=== PATIENT | male | born 2000 | race Caucasian/White ===

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

== ENCOUNTER 2022-04-24 17:19 | Emergency (ER) | payer OTHER ==
--- OUTSIDE RECORDS SUMMARY | 2022-04-24 17:23 | XMS REPORT | Continuity of Care Document ---
:2000 Author Organization [facility] t Address [address] [place] [address] Care Team Providers Name Role Phone JEFFREY Mcmillan [facility] Primary Care P hysician Unavailable KIP BATES Attending Clinician Unavailable Only, Suman [facility] Test Attending Clinician Unavailable Unknown, Attending Attending Clinician Unavailable Doctor Unassigned, [place] Attending Clinician Unavailable Megan Alexander Attending Clinician Sumaya Royal MD Attending Clinician SUMAYA ROYAL Attending Clinician Unavailable SUMAYA ROYAL Admitting Clinician Unavailable Payers Payer Name Policy Type Policy Number Effective Date Expiration Date S shar [facility]LY [facility] [id number] 2018 00:00:00 Problems Condition Condition Condition Status Onset Resolution Last Treating Co mments Source Name Details Category Date Date Treatment Clinician Date Phimosis Phimosis Disease Active Guillermo s 02-19 Health 00:00: 00 ADHD ADHD Disease Active Juliano (attention (attention 02-25 He alth deficit deficit 00:00: hyperactiv hyperactiv 00 ity ity disorder) disorder) Learning Learning Disease Active Harri s disability disability 02-25 He alth 00:00: 00 No known No known Disease Unive rs active active ity of problems problems [facility] Allergies, Adverse Reactions, Alerts Allergy Allergy Status Severity Reaction(s) Onset Inactive Treating Comm ents Source Name Type Date Date Clinician NO KNOWN Drug Active Univers ALLERGIE Class ity of S [facility] Family History Family Member Diagnosis Comments Start Date Stop Date Source Maternal aunt Other [facility] Maternal aunt Cancer [facility] Maternal grandmother Other [facility] Natural mother Cancer Juliano [facility] Natural mother Other Henao [facility] Other Heart [facility] Natural sister Asthma Juliano [facility] Natural father Asthma Henao a [facility] Natural father Hypertension [facility] ealth unknown [facility] Social History Social Habit Start Date Stop Date Quantity Comments Source Exposure to Yes [facility]2 [place] [facility] (event) Branch Alcohol intake 2021-11-04 2021-11-04 Current [facility] 00:00:00 00:00:00 non-drinker of alcohol (finding) Tobacco use and 2012-02-26 2012-02-26 Smokeless tobacco [facility] exposure 00:00:00 00:00:00 non-user Sex Assigned At 2002 2002 Juliano Cormier alth 00:00:00 00:00:00 Smoking Status Start Date Stop Date Source Never smoker [facility] Medications Ordered Filled Start Stop Current Ordering Indication Dosage Frequency Signature Comments Components Source Medication Medication Date Date Medication? Clinician (SIG) Name Name magnesium 0 Yes [id number] 400mg Take 400 Univers oxide 400 2-27 mg by ity of mg 00:00: mouth [place] magnesium 00 daily. Medical Tab Branch magnesium 2020-0 Yes [id number] 400mg Take 400 Univers oxide 400 2-27 mg by ity of mg 00:00: mouth [place] magnesium 00 daily. Medical Tab Branch magnesium 2020-0 Yes [id number] 400mg Take 400 Univers oxide 400 2-27 mg by ity of mg 00:00: mouth [place] magnesium 00 daily. Medical Tab Branch magnesium 2020-0 Yes [id number] 400mg Take 400 Univers oxide 400 2-27 mg by ity of mg 00:00: mouth [place] magnesium 00 daily. Medical Tab Branch magnesium 2020-0 Yes [id number] 400mg Take 400 Univers oxide 400 2-27 mg by ity of mg 00:00: mouth [place] magnesium 00 daily. Medical Tab Branch magnesium 2020-0 Yes [id number] 400mg Take 400 Univers oxide 400 2-27 mg by ity of mg 00:00: mouth [place] magnesium 00 daily. Medical Tab Branch magnesium 2020-0 Yes [id number] 400mg Take 400 Univers oxide 400 2-27 mg by ity of mg 00:00: mouth [place] magnesium 00 daily. Medical Tab Branch magnesium 2020-0 Yes [id number] 400mg Take 400 Univers oxide 400 2-27 mg by ity of mg 00:00: mouth [place] magnesium 00 daily. Medical Tab Branch magnesium 2020-0 Yes [id number] 400mg Take 400 Univers oxide 400 2-27 mg by ity of mg 00:00: mouth [place] magnesium 00 daily. Medical Tab Branch magnesium 2020-0 Yes [id number] 400mg Take 400 Univers oxide 400 2-27 mg by ity of mg 00:00: mouth [place] magnesium 00 daily. Medical Tab Branch magnesium 2020-0 Yes [id number] 400mg Take 400 Univers oxide 400 2-27 mg by ity of mg 00:00: mouth [place] magnesium 00 daily. Medical Tab Branch magnesium 2020-0 Yes [id number] 400mg Take 400 Univers oxide 400 2-27 mg by ity of mg 00:00: mouth [place] magnesium 00 daily. Medical Tab Branch magnesium 2020-0 Yes [id number] 400mg Take 400 Univers oxide 400 2-27 mg by ity of mg 00:00: mouth [place] magnesium 00 daily. Medical Tab Branch dexmethylph Yes ADHD 5mg QD Take 1 Nidia is enidate 6-16 (attention capsule by Isai (FOCALIN 00:00: deficit mouth XR) 5 mg 00 hyperactivi daily extended ty Ctrl#[id number] release disorder) [id number]. capsule Dexmethylph Yes ADHD 5mg Q.5D Take 1 Nidia is enidate 6-16 (attention tablet by H ealth (FOCALIN) 5 00:00: deficit mouth 2 mg tablet 00 hyperactivi times ty daily disorder) Ctrl#[id number]. dexmethylph 2013-0 Yes ADHD 5mg QD Take 1 Nidia is enidate 6-16 (attention capsule by Isai (FOCALIN 00:00: deficit mouth XR) 5 mg 00 hyperactivi daily extended ty Ctrl#[id number] release disorder) [id number]. capsule Dexmethylph 0 Yes ADHD 5mg Q.5D Take 1 Nidia is enidate 6-16 (attention tablet by H ealth (FOCALIN) 5 00:00: deficit mouth 2 mg tablet 00 hyperactivi times ty daily disorder) [facility]#[id number]. dexmethylph 2012-07 Yes ADHD Take 1 cap [facility] enidate 0-14 (attention PO qAM Heal th (FOCALIN 00:00: deficit XR) 5 mg 00 hyperactivi extended ty release disorder) capsule dexmethylph 2012-07 Yes ADHD Take 1 cap [facility] enidate 0-14 (attention PO qAM Heal th (FOCALIN 00:00: deficit XR) 5 mg 00 hyperactivi extended ty release disorder) capsule betamethaso Yes Phimosis Q.5D Apply to [facility] 8-15 affected Health dipropionat 00:00: area 2 e 00 times (DIPROLENE) daily. 0.05 % ointment betamethaso Yes Phimosis Q.5D Apply to [facility] 8-15 affected Health dipropionat 00:00: area 2 e 00 times (DIPROLENE) daily. 0.05 % ointment Guanfacine Yes ADHD 1mg Take 1 mg [facility] (INTUNIV) 1 7-22 (attention by mouth. Health mg Tb24 00:00: deficit 00 hyperactivi ty disorder) Guanfacine Yes ADHD 1mg Take 1 mg [facility] (INTUNIV) 1 7-22 (attention by mouth. Health mg Tb24 00:00: deficit 00 hyperactivi ty disorder) No known No Univers medications ity [facility] Immunizations Ordered Filled Immunization Date Status Comments Sour e Immunization Name Name HPV 2018-02-25 Completed University of 00:00:00 [facility] HPV 2018-02-25 Completed University of 00:00:00 [facility] HPV 2018-02-25 Completed University of 00:00:00 [facility] HPV 2018-02-25 Completed University of 00:00:00 [facility] HPV 2018-02-25 Completed University of 00:00: [facility] HPV 2018-02-25 Completed University of 00:00:00 [facility] HPV 2018-02-25 Completed University of 00:00:00 [facility] HPV 2018-02-25 Completed University of 00:00:00 [facility] HPV 2018-02-25 Completed University of 00:00:00 [facility] HPV 2018-02-25 Completed University of 00:00:00 [facility] HPV 2018-02-25 Completed University of 00:00:00 [facility] HPV 2018-02-25 Completed University of 00:00:00 [facility] HPV 2018-02-25 Completed University of 00:00:00 [facility] HPV 2018-02-25 Completed University of 00:00:00 [facility] HPV 2016-02-14 Completed University of 00:00:00 [facility] HPV 2016-02-14 Completed University of 00:00:00 [facility] HPV 2016-02-14 Completed University of 00:00:00 [facility] HPV 2016-02-14 Completed University of 00:00:00 [facility] HPV 2016-02-14 Completed University of 00:00:00 [facility] HPV 2016-02-14 Completed University of 00:00:00 [facility] HPV 2016-02-14 Completed University of 00:00:00 [facility] HPV 2016-02-14 Completed University of 00:00:00 [facility] HPV 2016-02-14 Completed University of 00:00:00 [facility] HPV 2016-02-14 Completed University of 00:00:00 [facility] HPV 2016-02-14 Completed University of 00:00:00 [facility] HPV 2016-02-14 Completed University of 00:00:00 [facility] HPV 2016-02-14 Completed University of 00:00:00 [facility] HPV 2016-02-14 Completed University of 00:00:00 [facility] Influenza Vac 2012-04-10 Completed [facility] Intranasal 00:00:00 (Flumist) Influenza Vac 2012-04-10 Completed [facility] Intranasal 00:00:00 (Flumist) Varicella Vaccine 2011-02-23 Completed [facility] 00:00:00 Varicella Vaccine 2011-02-23 Completed [facility] 00:00:00 DTaP Diphtheria, 2007-03-17 Completed [facility] ealth Tetanus, Acellular, 00:00:00 Pertussis MMR Measles, Mumps, 2007-03-17 Completed [facility] Rubella Vaccine 00:00:00 Poliovirus Ipv 2007-03-17 [facility] 00:[facility] DTaP Diphtheria, 2007-03-17 Completed [facility] ealth Tetanus, Acellular, 00:00:00 Pertussis MMR Measles, Mumps, 2007-03-17 Completed [facility] Rubella Vaccine 00:00:00 Poliovirus Ipv 2007-03-17 Completed [facility] 00:00:00 Hepatitis A Vaccine 2006-05-06 Completed [facility] 00:00:00 Hepatitis A Vaccine 2006-05-06 Completed [facility] 00:00:00 Hepatitis A Vaccine 2005-09-25 Completed [facility] 00:00:00 Hepatitis A Vaccine 2005-09-25 Completed [facility] 00:00:00 DTaP Diphtheria, 2004-03-23 Completed [facility] ealt Tetanus, Acellular, 00:00:00 Pertussis Hepatitis B Vaccine 2004-03-23 Completed [facility] 00:00:00 Hib Haemophilus 2004-03-23 Completed [facility] alth Influenzae Type B 00:00:00 Pneumococcal 2004-03-23 Completed [facility] 7-valent conj 0.5 00:00:00 mL injection Poliovirus Ipv 2004-03-23 Completed [facility] 00:00:00 Varicella Vaccine 2004-03-23 Completed [facility] 00:00:00 DTaP Diphtheria, 2004-03-23 Completed [facility] ealt Tetanus, Acellular, 00:00:00 Pertussis Hepatitis B Vaccine 2004-03-23 Completed [facility] 00:00:00 Hib Haemophilus 2004-03-23 Completed [facility] alth Influenzae Type B 00:00:00 Pneumococcal 2004-03-23 Completed [facility] 7-valent conj 0.5 00:00:00 mL injection Poliovirus Ipv 2004-03-23 Completed [facility] 00:00:00 Varicella Vaccine 2004-03-23 Completed [facility] 00:00:00 DTaP Diphtheria, 2003-05-27 Completed [facility] ealt Tetanus, Acellular, 00:00:00 Pertussis Hepatitis B Vaccine 2003-05-27 Completed [facility] 00:00:00 MMR Measles, Mumps, 2003-05-27 Completed [facility] Rubella Vaccine 00:00:00 Pneumococcal 2003-05-27 Completed [facility] 7-valent conj 0.5 00:00:00 mL injection DTaP Diphtheria, 2003-05-27 Completed [facility] Tetanus, Acellular, 00:00:00 Pertussis Hepatitis B Vaccine 2003-05-27 Com[facility] 00:00:00 MMR Measles, Mumps, 2003-05-27 Completed [facility] Rubella Vaccine 00:00:00 Pneumococcal 2003-05-27 Completed [facility] 7-valent conj 0.5 00:00:00 mL injection DTaP Diphtheria, 2003-05-25 Completed [facility] ealth Tetanus, Acellular, 00:00:00 Pertussis Hepatitis B Vaccine 2003-05-25 Completed [facility] 00:00:00 DTaP Diphtheria, 2003-05-25 Completed [facility] eah Tetanus, Acellular, 00:00:00 Pertussis Hepatitis B Vaccine 2003-05-25 Completed [facility] 00:00:00 Hib Haemophilus 2002 Completed [facility] alth Influenzae Type B 00:00:00 Pneumococcal 2002 Completed [facility] 7-valent conj 0.5 00:00:00 mL injection Poliovirus Ipv 2002 [facility] 00:00:00 Hib Haemophilus 2002 Completed [facility] alth Influenzae Type B 00:00:00 Pneumococcal 2002 Completed [facility] 7-valent conj 0.5 00:00:00 mL injection Poliovirus Ipv 2002 [facility] 00:00:00 Hepatitis B Vaccine 2002 Com[facility] 00:00:00 Hib Haemophilus 2002 Completed [facility] alth Influenzae Type B 00:00:00 Pneumococcal 2002 Completed [facility] 7-valent conj 0.5 00:00:00 mL injection Poliovirus Ipv 2002 [facility] 00:00:00 Hepatitis B Vaccine 2002 [facility] 00:00:00 Hib Haemophilus 2002 Completed [facility]th Influenzae Type B 00:00:00 Pneumococcal 2002 [facility] 00:00:00 mL injection Poliovirus Ipv 2002 [facility] 00:00:00 Vital Signs Vital Name Observation Time Observation Value Comments Source Oxygen saturation in 2020-04-05 14:19:00 98 /min University Arterial blood by [facility] Pulse oximetry Branch Systolic blood 2020-04-05 14:19:00 110 mm[Hg] Univer sity of pressure [facility] Diastolic blood 2020-04-05 14:19:00 68 mm[Hg] Unive rsity of pressure [facility] Heart rate 2020-04-05 14:19:00 77 /min Universi ty of [place] [facility] Body temperature 2020-04-05 14:19:00 36.78 Winsome Univ ersity of [facility] Respiratory rate 2020-04-05 14:19:00 18 /min Univ ersity of [facility] Body weight 2020-04-05 14:19:00 68.72 kg Universi ty of [facility] Oxygen saturation in 2020-04-05 14:19:00 98 /min [facility] Arterial blood by [facility] Pulse oximetry Branch Systolic blood 2020-04-05 14:19:00 110 mm[Hg] Univer sity of pressure [facility] Diastolic blood 2020-04-05 14:19:00 68 mm[Hg] Unive rsity of pressure [facility] Heart rate 2020-04-05 14:19:00 77 /min [facility]i ty [facility] [place] [facility] Body temperature 2020-04-05 14:19:00 36.78 Winsome Univ ersity of [facility] Respiratory rate 2020-04-05 14:19:00 18 /min Univ ersity of [place] [facility] Body weight 2020-04-05 14:19:00 68.72 kg Universi ty of [facility] Body temperature 2019-09-03 16:01:00 37.17 Winsome [facility] ersity of [facility] Body height 2019-09-03 16:01:00 188.3 cm Universi ty of [facility] Body weight 2019-09-03 16:01:00 71.5 kg Universi ty of [facility] BMI 2019-09-03 16:01:00 20.17 kg/m2 Universi ty of [facility] Procedures Procedure Date / Time Performing Clinician Source Performed ASSIGNMENT OF BENEFITS 2021-07-16 22:34:43 Doctor Unassigned, No [facility] COVID-19 (ID NOW RAPID 2020-04-05 15:40:00 Megan Dudley [facility] TESTING) Medical Branch NOTICE OF PRIVACY 2020-04-05 13:54:44 Doctor Unassigned, No [facility]REFUSAL FOR 2020-04-05 13:54:29 [facility]AT[facility] Name Medical Branch FERRITIN SERUM 2019-09-03 17:21:00 Darnell [facility] FREE T4 2019-09-03 17:21:00 Darnell [facility] THYROID STIMULATING 2019-09-03 17:21:00 Edith Patrick [facility] HORMONE Medical Branch COMP. METABOLIC PANEL 2019-09-03 17:21:00 [id number] Medical [facility] IRON PANEL 2019-09-03 17:21:00 Darnell [facility] CBC WITH DIFFERENTIAL 2019-09-03 17:21:00 Darnell [facility] EXTERNAL PROVIDER 2019-08-05 06:01:00 Doctor Unassigned, No Univ [facility] RECORDS Name Medical Lula Plan of Care Planned Activity Planned Date Details Comments Source Future Scheduled Test 2022-04-07 00:00:00 IMM Influenza [facility] Seasonal (>/= 19 yrs) [code = IMM Influenza Seasonal (>/= 19 yrs)] Future Scheduled Test 2021-03-08 00:00:00 IMM Influenza (#1) [facility] [code = IMM Influenza (#1)] Future Scheduled Test 2018 00:00:00 IMM MCV4 (1 - 2-dose [facility] series) [code = IMM MCV4 (1 - 2-dose series)] Future Scheduled Test 2014 00:00:00 COVID-19 Vaccine (1) [facility] [code = COVID-19 Vaccine (1)] Future Scheduled Test 2013 00:00:00 IMM HPV (1 - Male [facility] 2-dose series) [code = IMM HPV (1 - Male 2-dose series)] Future Scheduled Test 2009 00:00:00 IMM diph/tet/pertus [facility] (4 - Tdap) [code = IMM diph/tet/pertus (4 - Tdap)] Future Scheduled Test 2002 00:00:00 COVID-19 Vaccine (#1) [facility] [code = COVID-19 Vaccine (#1)] Future Scheduled Test 2002 00:00:00 Fluoride Varnish [facility] [code = Fluoride Varnish] Encounters Start End Encounter Admission Attending Care Care Encounter Source Date/Time Date/Time Type Type Clinicians Facility Department ID 2021-05-05 Emergency [facility] [id number] Univers 19:56:46 ity of [facility] 2021-07-16 2021-07-16 Outpatient R PAULO [facility] [id number] Univers 16:45:00 17:51:21 KIP ity of [facility] 2021-07-16 2021-07-16 Laboratory Only, [facility] Test PAULA 1.2.8 [id number] [id number] Univers 16:45:00 17:00:00 Only Unknown, Attending PEDIATRIC [id number] ity [id number] [id number] [address] CARE CLINIC 2021-07-16 2021-07-16 Orders Doctor THOMAS [id number] Univers 00:00:00 00:00:00 Only Unassigned, GÓMEZ [id number] ity of [place] [facility] [id number] Tom as [phone] [facility] 009 Branch 2020-04-05 2020-04-05 Emergency [facility] [id number] Univers 09:20:00 12:20:00 Megan Avila [id number] i ty of [place] [id number] [place] [phone] [facility] 084 Branch 2020-04-05 2020-04-05 Emergency [facility] [id number] 09:20:00 12:20:00 Megan [place] [id number] [place] [id number] [place] [id number] [facility] 2019-10-28 2019-10-28 Telemchelsea Royal [facility] [id number] Univers 07:28:00 09:59:00 ne Visit Sumaya GREEN [id number] ity of [id number] [phone] [facility] 168 Branch 2019-10-28 2019-10-28 Telemedici [facility] [id number] 07:28:00 09:59:00 ne Visit Sumaya J SPECIALTY [id number] [place] [id number] [place] [id number] 168 2019-10-28 2019-10-28 [facility] [id number] Univers 08:00:00 08:00:00 SUMAYA itayleen [facility] 2019-09-22 2019-09-22 Telephone [facility] [id number] Univers 00:00:00 00:00:00 Sumaya J SPECIALTY [id number] [place] of [id number] [id number] [address] 2019-09-15 2019-09-15 [facility] 1.2.840.114 [id number] Univers 15:05:00 23:59:00 Encounter Sumaya J SPECIALTY [id number] ity of [id number] [id number] Ne dical JUDYY 804 [facility] 2019-09-15 2019-09-15 [facility] [id number] Univers 15:04:00 15:04:00 Encounter Sumaya J SPECIALTY [id number] ity of [id number] [id number] Ne dicgigi SWIFT 804 [facility] 2019-09-15 2019-09-15 [facility] [id number] Univers 15:03:51 15:03:00 SUMAYA itayleen [facility] 2019-09-15 2019-09-15 [facility] 1.2.840.114 [id number] Univers 15:03:00 15:03:00 Encounter Sumaya J SPECIALTY [id number] ity of [id number] [id number] Ne dicgigi DEADWOODAyleen [address] [place] [address] 2019-09-15 2019-09-15 [facility] [id number] Univers 00:00:00 00:00:00 Sumaya J SPECIALTY [id number] ity of [place] [id number] [place] [id number] [place] [address] Branch 2019-09-03 2019-09-03 Office Genny [facility] [id number] Univers 09:48:34 11:24:21 Visit Sumaya Burris SPECIALTY [id number] ity of [place] [id number] [place] [phone] [address] 2019-09-03 2019-09-03 Outpatient [facility] [id number] Univers 10:30:00 10:30:00 SUMAYA susanayleen [facility] 2019-08-05 2019-08-05 Orders Doctor THOMAS [id number] Univers 00:00:00 00:00:00 Only Unassigned, GÓMEZ [id number] ity of [place] [facility] [id number] [facility] as [phone] [address] Results Test Description Test Time Test Comments Results Result Comments Source COVID-19 (ID NOW RAPID TESTING) 2020-04-05 16:31:00 Test Item Value Reference Range Interpretation Comme nts SARS-CoV-2 Rapid ID NOW (test code Not Detected Not Detected = 07388-6) BECKY (test code = BECKY) ID NOW COVID-19 Assay is an isothermal nucleic acid amplification test intended for the qualitative detection of nucleic acid from SARS-CoV-2 viral RNA in nasopharyngeal (COPY EDITOR) specimens. It is used under Emergency Use Authorization (EUA) by FDA. The limit of detection (LOD) of the assay is 125 Genome Equivalents/mL. A positive result is indicative of the presence of SARS-CoV-2 RNA. ?Clinical correlation with patient history and other diagnostic information is necessary to determine patient infection status. A negative (Not Detected) result does not preclude SARS-CoV-2 infection. In patients with clinical symptoms and other tests that are consistent with SARS-CoV-2 infection, negative results should be treated as presumptive negative and a new specimen should be tested with alternative PCR molecular test. Invalid: Please collect a new specimen for repeat patient testing if clinically indicated. Lab Interpretation (test code = Normal 11406-1) [facility] [id number] 01:23:00 Test Item Value Reference Range Interpretation Comments FREE T4 (test code = See_Comment [Autom ated message] [id number]) The system [employer] generated this result transmitted ref erence range: 0.78 - 2 .20 ng/dL:. The ref erence range was not u sed to interpret this result as normal/abnor mal. Lab Interpretation (test Normal code = 06790-0) [facility] [id number] 01:23:00 Test Item Value Reference Range Interpretation Comments FREE T4 (test code = See_Comment [Autom ated message] [id number]) The system [employer] generated this result transmitted ref erence range: 0.78 - 2 .20 ng/dL:. The ref erence range was not u sed to interpret this result as normal/abnor mal. Lab Interpretation (test Normal code = 13524-6) [facility] [id number] 21:37:00 Test Item Value Reference Range Interpretation Comments FERRITIN (test code = 20.3 ng/mL 18-464 3168808020) BECKY (test code = BECKY) Biotin has been reported to cause a negative bias, interpret results relative to patient's use of biotin. Lab Interpretation (test Normal code = 72318-2) [facility] [id number] 21:37:00 Test Item Value Reference Range Interpretation Comments FERRITIN (test code = 20.3 ng/mL 18-464 5377081311) BECKY (test code = BECKY) Biotin has been reported to cause a negative bias, interpret results relative to patient's use of biotin. Lab Interpretation (test Normal code = 98402-1) [facility] [id number] 21:33:00 Test Item Value Reference Range Interpretation Comments TSH (test code = See_Comment [Automated message] 7152465693) The system [employer] generated this result transmitted ref erence range: 0.45 - 4 .70 mIU/L. The refe rence range was not u sed to interpret this result as normal/abnor mal. Lab Interpretation (test Normal code = 29608-7) [facility] [id number] 21:33:00 Test Item Value Reference Range Interpretation Comments TSH (test code = See_Comment [Automated message] 0658708074) The system [employer] generated this result transmitted ref erence range: 0.45 - 4 .70 mIU/L. The refe rence range was not u sed to interpret this result as normal/abnor mal. Lab Interpretation (test Normal code = 68420-4) [facility] [id number] 21:08:00 Test Item Value Reference Range Interpretation Comments IRON (test code = 1032567691) 115 ug/dL 50-160 TIBC (test code = 5279379444) 375 ug/dL 250-410 % FE SAT (test code = 8284445036) 31 % 20-50 Lab Interpretation (test code = Normal 35279-2) [facility] [id number] 21:08:00 Test Item Value Reference Range Interpretation Comments IRON (test code = 8876608958) 115 ug/dL 50-160 TIBC (test code = 9312369912) 375 ug/dL 250-410 % FE SAT (test code = 1096939739) 31 % 20-50 Lab Interpretation (test code = Normal 72037-4) [facility]. METABOLIC PANEL ([id number])2019-09-03 20:58:00 Test Item Value Reference Range Interpretation Comments NA (test code = 141 mmol/L 135-145 7554934008) K (test code = 4.2 mmol/L 3.5-5 8522021428) CL (test code = 102 mmol/L 98-108 8550024848) CO2 TOTAL (test code = 31 mmol/L 23-31 0171128353) AGAP (test code = 2-16 6148249898) BUN (test code = 12 mg/dL 7-23 8898667595) GLUCOSE (test code = 67 mg/dL 70-110 L 1685147086) CREATININE (test code = 0.82 mg/dL 0.6-1.25 2959087246) TOTAL BILI (test code = 0.5 mg/dL 0.1-1.7 5754379876) CALCIUM (test code = 9.9 mg/dL 8.6-10.6 0012441484) T PROTEIN (test code = 7.4 g/dL 6.3-8.2 2313981538) ALBUMIN (test code = 4.4 g/dL 3.5-5 4464119550) ALK PHOS (test code = 163 U/L 34-122 H 6332007083) ALTv (test code = 15 U/L 5-50 1742-6) AST(SGOT) (test code = 24 U/L 13-40 2819635180) BECKY (test code = BECKY) Association of Glomerular Filtration Rate (GFR) and Staging of Kidney Disease* + --+ --+ ------+| GFR (mL/min/1.73 m2) ?| With Kidney Damage ?| ?Without Kidney Damage+ --------+ --------+ +| ?>90 ?| ?Stage one ?| ? Normal ?+ ---+ ---+ -------+| ?60-89 ?| ?Stage two ?| ? Decreased GFR ? + --+ --+ ------+| ?30-59 ?| ?Stage three ?| ? Stage three ? + --+ --+ ------+| ?15-29 ?| ?Stage four ? | ? Stage four ?+ ---+ ---+ -------+| ?<15 (or dialysis) ? ?| ?Stage five ? | ? Stage five ?+ ---+ ---+ -------+ *Each stage assumes the associated GFR level has been in effect for at least three months. ?Stages 1 to 5, with or without kidney disease, indicate chronic kidney disease. Notes: Determination of stages one and two (with eGFR >59mL/min/1.73 m2) requires estimation of kidney damage for at least three months as defined by structural or functional abnormalities of the kidney, manifested by either:Pathological abnormalities or Markers of kidney damage (including abnormalities in the composition of the blood or urine or abnormalities in imaging tests). Lab Interpretation Abnormal (test code = 22615-6) [facility]. METABOLIC PANEL ([id number])2019-09-03 20:58:00 Test Item Value Reference Range Interpretation Comments NA (test code = 141 mmol/L 135-145 1922369966) K (test code = 4.2 mmol/L 3.5-5 6367122047) CL (test code = 102 mmol/L 98-108 2001675695) CO2 TOTAL (test code = 31 mmol/L 23-31 9095111304) AGAP (test code = 2-16 5694106365) BUN (test code = 12 mg/dL 7-23 9605219498) GLUCOSE (test code = 67 mg/dL 70-110 L 5019879466) CREATININE (test code = 0.82 mg/dL 0.6-1.25 0195205003) TOTAL BILI (test code = 0.5 mg/dL 0.1-1.0 7700768802) CALCIUM (test code = 9.9 mg/dL 8.6-10.6 0536928561) T PROTEIN (test code = 7.4 g/dL 6.3-8.2 3126905968) ALBUMIN (test code = 4.4 g/dL 3.5-5 1428489695) ALK PHOS (test code = 163 U/L 34-122 H 7289426638) ALTv (test code = 15 U/L 5-50 2-6) AST(SGOT) (test code = 24 U/L 13-40 4719863254) BECKY (test code = BECKY) Association of Glomerular Filtration Rate (GFR) and Staging of Kidney Disease* + --+ --+ ------+| GFR (mL/min/1.73 m2) ?| With Kidney Damage ?| ?Without Kidney Damage+ --------+ --------+ +| ?>90 ?| ?Stage one ?| ? Normal ?+ ---+ ---+ -------+| ?60-89 ?| ?Stage two ?| ? Decreased GFR ? + --+ --+ ------+| ?30-59 ?| ?Stage three ?| ? Stage three ? + --+ --+ ------+| ?15-29 ?| ?Stage four ? | ? Stage four ?+ ---+ ---+ -------+| ?<15 (or dialysis) ? ?| ?Stage five ? | ? Stage five ?+ ---+ ---+ -------+ *Each stage assumes the associated GFR level has been in effect for at least three months. ?Stages 1 to 5, with or without kidney disease, indicate chronic kidney disease. Notes: Determination of stages one and two (with eGFR >59mL/min/1.73 m2) requires estimation of kidney damage for at least three months as defined by structural or functional abnormalities of the kidney, manifested by either:Pathological abnormalities or Markers of kidney damage (including abnormalities in the composition of the blood or urine or abnormalities in imaging tests). Lab Interpretation Abnormal (test code = 89553-2) [facility] WITH [id number] 20:09:00 Test Item Value Reference Range Interpretation Comments WBC (test code = See_Comment [Automated message] 6690-2) The system [employer] generated this result transmitted ref erence range: 4.50 - 1 3.50 10*3/?L. The re ference range was not u sed to interpret this result as normal/abnor mal. RBC (test code = See_Comment [Automated message] 789-8) The system [employer] generated this result transmitted ref erence range: 4.50 - 5 .30 10*6/?L. The re ference range was not u sed to interpret this result as normal/abnor mal. HGB (test code = 13.9 g/dL 13-16 718-7) HCT (test code = 43.1 % 37-49 4544-3) MCV (test code = 88.5 fL 78-95 787-2) MCH (test code = 28.5 pg 26-32 785-6) MCHC (test code = 32.3 g/dL 32-36 786-4) RDW-SD (test code 41.8 fL 38.5-49 = 41848-8) RDW-CV (test code 12.8 % 11.5-14 = 788-0) PLT (test code = See_Comment [Automated message] 777-3) The system [employer] generated this result transmitted ref erence range: 133 - 32 0 10*3/?L. The re ference range was not u sed to interpret this result as normal/abnor mal. MPV (test code = 10.4 fL 9.3-12.9 64455-3) NRBC/100 WBC (test See_Comment [Automat ed message] code = 7214134148) The [employer] which generated this result transmitted ref erence range: 0.0 - 10 .0 /100 WBCs. The refer ence range was not u sed to interpret this result as normal/abnor mal. NRBC x10^3 (test <0.01 See_Comment [Automated message] code = 1638049354) The [employer] which generated this result transmitted ref erence range: 10*3/?L. The reference range was not used to interpr et this result as normal/abnormal . GRAN MAT (NEUT) % 49.3 % (test code = 770-8) IMM GRAN % (test 0.10 % code = 3779633864) LYMPH % (test code 39.4 % = 736-9) MONO % (test code 7.2 % = 5905-5) EOS % (test code = 3.0 % 713-8) BASO % (test code 1.0 % = 706-2) GRAN MAT 3.42 10*3/uL 1.5-10.3 x10^3(ANC) (test code = 7974985876) IMM GRAN x10^3 <0.03 0-0.06 (test code = 2656910836) LYMPH x10^3 (test 2.74 10*3/uL 0.7-7.4 code = 731-0) MONO x10^3 (test 0.50 10*3/uL 0-0.5 code = 742-7) EOS x10^3 (test 0.21 10*3/uL 0-0.4 code = 711-2) BASO x10^3 (test 0.07 10*3/uL 0-0.1 code = 704-7) [facility] WITH [id number] 20:09:00 Test Item Value Reference Range Interpretation Comments WBC (test code = See_Comment [Automated message] 6690-2) The system [employer] generated this result transmitted ref erence range: 4.50 - 1 3.50 10*3/?L. The re ference range was not u sed to interpret this result as normal/abnor mal. RBC (test code = See_Comment [Automated message] 789-8) The system [employer] generated this result transmitted ref erence range: 4.50 - 5 .30 10*6/?L. The re ference range was not u sed to interpret this result as normal/abnor mal. HGB (test code = 13.9 g/dL 13-16 718-7) HCT (test code = 43.1 % 37-49 4544-3) MCV (test code = 88.5 fL 78-95 787-2) MCH (test code = 28.5 pg 26-32 785-6) MCHC (test code = 32.3 g/dL 32-36 786-4) RDW-SD (test code 41.8 fL 38.5-49 = 86940-1) RDW-CV (test code 12.8 % 11.5-14 = 788-0) PLT (test code = See_Comment [Automated message] 777-3) The system whic h generated this result transmitted ref erence range: 133 - 32 0 10*3/?L. The re ference range was not u sed to interpret this result as normal/abnor mal. MPV (test code = 10.4 fL 9.3-12.9 87235-2) NRBC/100 WBC (test See_Comment [Automat ed message] code = 1285630850) The syste m which generated this result transmitted ref erence range: 0.0 - 10 .0 /100 WBCs. The refer ence range was not u sed to interpret this result as normal/abnor mal. NRBC x10^3 (test <0.01 See_Comment [Automated message] code = 4012773875) The syste m which generated this result transmitted ref erence range: 10*3/?L. The reference range was not used to interpr et this result as normal/abnormal . GRAN MAT (NEUT) % 49.3 % (test code = 770-8) IMM GRAN % (test 0.10 % code = 1847554775) LYMPH % (test code 39.4 % = 736-9) MONO % (test code 7.2 % = 5905-5) EOS % (test code = 3.0 % 713-8) BASO % (test code 1.0 % = 706-2) GRAN MAT 3.42 10*3/uL 1.5-10.3 x10^3(ANC) (test code = 2925215480) IMM GRAN x10^3 <0.03 0-0.06 (test code = 7946028639) LYMPH x10^3 (test 2.74 10*3/uL 0.7-7.4 code = 731-0) MONO x10^3 (test 0.50 10*3/uL 0-0.5 code = 742-7) EOS x10^3 (test 0.21 10*3/uL 0-0.4 code = 711-2) BASO x10^3 (test 0.07 10*3/uL 0-0.1 code = 704-7) [facility]"
[2022-04-24] MEDS ORDERED: KETOROLAC 30 MG/ML INJ ONE (19:09)
--- NOTE | 2022-04-24 19:11 | RAD REPORT ---
EXAM DESCRIPTION: Philomena Single View04/24/2022 7:00 pm CLINICAL HISTORY: Chest pain COMPARISON: 2019 FINDINGS: The lungs appear clear of acute infiltrate. The heart is normal size No pneumothorax noted IMPRESSION: No acute abnormalities displayed
--- NOTE | 2022-04-24 19:21 | EDPHYS ---
Physician Documentation [facility] Name: Denise Vanessa Jr Age: 22 yrs Sex: Male : 2000 Arrival Date: 04/24/2022 Time: 17:30 Bed 9 Private MD: ED Physician Ed Nix HPI: 04/24 19:22 This 22 yrs old Male presents to ER via Ambulatory with complaints of rib pain. snw 19:22 The patient or guardian reports chest pain that is located primarily in the left snw lateral anterior chest. The pain does not radiate. Associated signs and symptoms: The patient has no apparent associated signs or symptoms. The chest pain is described as sharp. Duration: The patient or guardian reports multiple episodes. Severity of pain: At its worst the pain was moderate. The patient has not experienced similar symptoms in the past. It is unknown whether or not the patient has recently seen a physician. Historical: - Allergies: 17:47 No Known Allergies; ll1 - PMHx: 17:47 "black out spells"; Anxiety; Migraines; ll1 - PSHx: 17:47 tubes in Ears; ll1 - Immunization history:: Client reports receiving the 2nd dose of the Covid vaccine. - Social history:: Smoking status: Reported history of juuling and/or vaping. ROS: 18:36 Constitutional: Negative for fever, chills, and weight loss, Eyes: Negative for injury, snw pain, redness, and discharge, ENT: Negative for injury, pain, and discharge, Neck: Negative for injury, pain, and swelling, Cardiovascular: Negative for chest pain, palpitations, and edema, Abdomen/GI: Negative for abdominal pain, nausea, vomiting, diarrhea, and constipation, Back: Negative for injury and pain, : Negative for injury, bleeding, discharge, and swelling, MS/Extremity: Negative for injury and deformity, Skin: Negative for injury, rash, and discoloration, Neuro: Negative for headache, weakness, numbness, tingling, and seizure, Psych: Negative for depression, anxiety, suicide ideation, homicidal ideation, and hallucinations. 18:36 Respiratory: Positive for pleurisy, of the left posterior lower lobe. Exam: 18:31 Constitutional: This is a well developed, well nourished patient who is awake, alert, snw and in no acute distress. Head/Face: Normocephalic, atraumatic. Eyes: Pupils equal round and reactive to light, extra-ocular motions intact. Lids and lashes normal. Conjunctiva and sclera are non-icteric and not injected. Cornea within normal limits. Periorbital areas with no swelling, redness, or edema. ENT: Nares patent. No nasal discharge, no septal abnormalities noted. Tympanic membranes are normal and external auditory canals are clear. Oropharynx with no redness, swelling, or masses, exudates, or evidence of obstruction, uvula midline. Mucous membranes moist. Neck: Trachea midline, no thyromegaly or masses palpated, and no cervical lymphadenopathy. Supple, full range of motion without nuchal rigidity, or vertebral point tenderness. No Meningismus. Cardiovascular: Regular rate and rhythm with a normal S1 and S2. No gallops, murmurs, or rubs. Normal PMI, no JVD. No pulse deficits. Abdomen/GI: Soft, non-tender, with normal bowel sounds. No distension or tympany. No guarding or rebound. No evidence of tenderness throughout. Back: No spinal tenderness. No costovertebral tenderness. Full range of motion. Skin: Warm, dry with normal turgor. Normal color with no rashes, no lesions, and no evidence of cellulitis. MS/ Extremity: Pulses equal, no cyanosis. Neurovascular intact. Full, normal range of motion. Neuro: Awake and alert, GCS 15, oriented to person, place, time, and situation. Cranial nerves II-XII grossly intact. Motor strength 5/5 in all extremities. Sensory grossly intact. Cerebellar exam normal. Normal gait. 18:31 Chest/axilla: Marfanoid, no crepitus. 18:31 Respiratory: the patient does not display signs of respiratory distress, Respirations: normal, Breath sounds: decreased breath sounds, that are mild, are heard in the left posterior lower lobe. Vital Signs: 17:45 BP 114 / 62; Pulse 72; Resp 16; Temp 98.9; Pulse Ox 98% ; Weight 72.57 kg; Height 6 ft. ll1 3 in. (190.50 cm); Pain 3/10; 19:32 BP 112 / 70; Pulse 68; Resp 20; Pulse Ox 99% on R/A; kl 17:45 Body Mass Index 20.00 (72.57 kg, 190.50 cm) ll1 MDM: 18:01 Patient medically screened. snw 18:37 Data reviewed: vital signs, nurses notes. Data interpreted: Pulse oximetry: on room air snw is 98 %. Interpretation: normal. 19:28 Special discussion: smoking cessation. snw 04/24 18:16 Order name: Chest Single View XRAY; Complete Time: 19:14 snw Administered Medications: 19:12 Not Given (Patient Refused): Ketorolac 60 mg IM once kb3 Disposition Summary: 04/24/22 19:21 Discharge Ordered Location: Home snw Condition: Stable snw Diagnosis - Costochondritis snw Followup: snw - With: Emergency Department - When: As needed - Reason: Worsening of condition Followup: snw - With: Private Physician - When: 2 - 3 days - Reason: Recheck today's complaints, Continuance of care, Re-evaluation by your physician Discharge Instructions: - Discharge Summary Sheet snw - Costochondritis snw - Health Risks of Smoking snw - Managing the Challenge of Quitting Smoking snw Forms: - Medication Reconciliation Form snw - Thank You Letter snw - Antibiotic Education snw - Prescription Opioid Use snw - Work release form snw Prescriptions: - Mobic 7.5 mg Oral Tablet - take 1 tablet by ORAL route once daily take with food; 20 tablet; Refills: 0, snw Product Selection Permitted Signatures: Dispatcher [employer] EDMS Lita Han FNP-C DESIGN DRAFTER-Csnw Rashi Zhou RN RN ll1 Sharri Augustine RN kb3 Corrections: (The following items were deleted from the chart) 18:57 18:00 Chest Pa And Lat (2 Views)+RAD.RAD.[email or web address] ordered. EDMS EDMS
--- NOTE | 2022-04-24 19:21 | ER ---
Nurse's Notes [facility] Name: Denise Vanessa Jr Age: 22 yrs Sex: Male : 2000 Arrival Date: 04/24/2022 Time: 17:30 Bed 9 Private MD: Diagnosis: Costochondritis Presentation: 04/24 17:45 Chief complaint: Patient states: L sided rib pain since last night. No cough or SOB. ll1 Feels a stabbing pain left lower rib cage area. Coronavirus screen: Vaccine status: Patient reports receiving the 2nd dose of the covid vaccine. Client denies travel out of the [place] in the last 14 days. At this time, the client does not indicate any symptoms associated with coronavirus-19. Ebola Screen: Patient denies travel to an Ebola-affected area in the 21 days before illness onset. Initial Sepsis Screen: Does the patient meet any 2 criteria? No. Patient's initial sepsis screen is negative. Does the patient have a suspected source of infection? No. Patient's initial sepsis screen is negative. Risk Assessment: Do you want to hurt yourself or someone else? Patient reports no desire to harm self or others. Onset of symptoms was April 23, 2022. 17:45 Method Of Arrival: Ambulatory ll1 17:45 Acuity: POONAM 4 ll1 Triage Assessment: 17:47 General: Appears uncomfortable, Behavior is cooperative, appropriate for age. Pain: ll1 Complains of pain in L rib cage pains Pain currently is 3 out of 10 on a pain scale. Respiratory: Reports pain with respiration. Historical: - Allergies: 17:47 No Known Allergies; ll1 - PMHx: 17:47 "black out spells"; Anxiety; Migraines; ll1 - PSHx: 17:47 tubes in Ears; ll1 - Immunization history:: Client reports receiving the 2nd dose of the Covid vaccine. - Social history:: Smoking status: Reported history of juuling and/or vaping. Screenin:00 Abuse screen: Denies threats or abuse. Denies injuries from another. Nutritional kb3 screening: No deficits noted. Tuberculosis screening: No symptoms or risk factors identified. Fall Risk None identified. Assessment: 18:00 Reassessment: Patient appears in no apparent distress at this time. No changes from kb3 previously documented assessment. General: Appears in no apparent distress. Behavior is calm, cooperative, Received care of pt from triage. AAO x4. Reports left lower rib pain since last night. Denies cough or injury.. Musculoskeletal: Reports since last night. Let lower ribs/chest area. Vital Signs: 17:45 BP 114 / 62; Pulse 72; Resp 16; Temp 98.9; Pulse Ox 98% ; Weight 72.57 kg; Height 6 ft. ll1 3 in. (190.50 cm); Pain 3/10; 19:32 BP 112 / 70; Pulse 68; Resp 20; Pulse Ox 99% on R/A; kl 17:45 Body Mass Index 20.00 (72.57 kg, 190.50 cm) ll1 ED Course: 17:30 Patient arrived in ED. am2 17:35 Lita Han FNP-C is [facility]. snw 17:35 Ed Nix MD is Attending Physician. snw 17:47 Triage completed. ll1 17:47 Arm band placed on Patient placed in an exam room, on a stretcher. ll1 17:58 Sharri Augustine, RN is Primary Nurse. kb3 18:00 Patient has correct armband on for positive identification. Bed in low position. Call kb3 light in reach. 18:00 No provider procedures requiring assistance completed. Patient did not have IV access kb3 during this emergency room visit. 19:02 Chest Single View XRAY In Process Unspecified. EDMS Administered Medications: 19:12 Not Given (Patient Refused): Ketorolac 60 mg IM once kb3 Medication: 18:00 VIS not applicable for this client. kb3 Outcome: 19:21 Discharge ordered by . snw 19:32 Discharged to home ambulatory. kl 19:32 Condition: stable 19:32 Discharge instructions given to patient, Instructed on discharge instructions, follow up and referral plans. medication usage, Demonstrated understanding of instructions, follow-up care, medications, Prescriptions given X 1. 19:32 Patient left the ED. kl Signatures: Dispatcher [employer] EDMS Venus Zhou RN RN kl Waters, Shelly, FNP-C MATHEMATICS DEPARTMENT CHAIR-Csnw Deanna Ibarra am2 Rashi Zhou RN RN 1 Sharri Augustine, RN RN kb3 Corrections: (The following items were deleted from the chart) 18:39 18:36 Reassessment: Patient appears in no apparent distress at this time. No changes kb3 from previously documented assessment. kb3 18:39 18:36 General: Appears in no apparent distress. Behavior is calm, cooperative, Received kb3 care of pt from triage. AAO x4. Reports left lower rib pain since last night. Denies cough or injury.. kb3 18:39 18:36 Musculoskeletal: Reports since last night. Let lower ribs/chest area kb3 kb3
[2022-04-24 19:39] VITALS: TEMP 98.9
[2022-04-24 19:40] VITALS: BP 112/70; O2SAT 99
== END 2022-04-24 19:32 | disposition home or self-care (01) ==
LOC: ER 17:19
DX: M94.0 Chondrocostal junction syndrome [Tietze] (principal)
CPT/HCPCS: 71045; 99283

== ENCOUNTER 2022-06-05 23:15 | Emergency (ER) | payer OTHER ==
--- OUTSIDE RECORDS SUMMARY | 2022-06-05 23:38 | XMS REPORT | Continuity of Care Document ---
:2000 Author Organization [facility] t Address [address] [place] [address] Care Team Providers Name Role Phone JEFFREY Mcmillan [facility] Primary Care P hysician Unavailable KIP BATES Attending Clinician Unavailable Only, [facility]uman [facility] Test Attending Clinician Unavailable Unknown, Attending Attending Clinician Unavailable Doctor Unassigned, [place] Attending Clinician Unavailable Megan Alexander Attending Clinician Sumaya Royal MD Attending Clinician SUMAYA ROYAL Attending Clinician Unavailable SUMAYA ROYAL Admitting Clinician Unavailable Payers Payer Name Policy Type Policy Number Effective Date Expiration Date S shar [facility] [id number] 2018 00:00:00 Problems Condition Condition Condition Status Onset Resolution Last Treating Co mments Source Name Details Category Date Date Treatment Clinician Date Phimosis Phimosis Disease Active Guillermo laws 02-19 Health 00:00: 00 ADHD ADHD Disease Active Juliano (attention (attention 02-25 He alth deficit deficit 00:00: hyperactiv hyperactiv 00 ity ity disorder) disorder) Learning Learning Disease Active Guillermo s disability disability 02-25 He alth 00:00: 00 No known No known Disease Unive rs active active ity of problems problems [facility] Allergies, Adverse Reactions, Alerts Allergy Allergy Status Severity Reaction(s) Onset Inactive Treating Comm ents Source Name Type Date Date Clinician NO KNOWN Drug Active Univers ALLERGIE Class ity of S [facility] Family History Family Member Diagnosis Comments Start Date Stop Date Source Maternal aunt Other [facility] Maternal aunt Cancer [facility] Maternal grandmother Other [facility] Natural mother Cancer Juliano [facility] Natural mother Other Juliano [facility] Other Heart [facility] Natural sister Asthma [facility] Natural father Asthma Juliano [facility] Natural father Hypertension [facility] ealth unknown [facility] Social History Social Habit Start Date Stop Date Quantity Comments Source Exposure to Yes [facility]-CoV-2 [place] [facility] (event) [facility] Alcohol intake 2021-11-04 2021-11-04 [facility] 00:00:00 00:00:00 non-drinker of alcohol (finding) Tobacco use and 2012-02-26 2012-02-26 Smokeless tobacco [facility] exposure 00:00:00 00:00:00 non-user Sex Assigned At 2000 2002 Juliano Cormier alth 00:00:00 00:00:00 Smoking Status Start Date Stop Date Source Never smoker [facility] Medications Ordered Filled Start Stop Current Ordering Indication Dosage Frequency Signature Comments Components Source Medication Medication Date Date Medication? Clinician (SIG) Name Name magnesium 0 Yes [id number] 400mg Take 400 Univers oxide 400 2-27 mg by ity of mg 00:00: mouth [place] magnesium 00 daily. Medical Tab Branch magnesium 2020-0 Yes [id number] 400mg Take 400 Univers oxide 400 2-27 mg by ity of mg 00:00: mouth [place] magnesium 00 daily. Medical Tab Branch magnesium 2020-0 Yes [id number] 400mg Take 400 Univers oxide 400 2-27 mg by ity of mg 00:00: mouth [place] magnesium 00 daily. Medical Tab Branch magnesium 2020-0 Yes [id number] 400mg Take 400 Univers oxide 400 2-27 mg by ity of mg 00:00: mouth [place] magnesium 00 daily. Medical Tab Branch magnesium 2020-0 Yes [id number] 400mg Take 400 Univers oxide 400 2-27 mg by ity of mg 00:00: mouth [place] magnesium 00 daily. Medical Tab Branch magnesium 2020-0 Yes [id number] 400mg Take 400 Univers oxide 400 2-27 mg by ity of mg 00:00: mouth [place] magnesium 00 daily. Medical Tab Branch magnesium 2020-0 Yes [id number] 400mg Take 400 Univers oxide 400 2-27 mg by ity of mg 00:00: mouth [place] magnesium 00 daily. Medical Tab Branch magnesium 2020-0 Yes [id number] 400mg Take 400 Univers oxide 400 2-27 mg by ity of mg 00:00: mouth [place] magnesium 00 daily. Medical Tab Branch magnesium 2020-0 Yes [id number] 400mg Take 400 Univers oxide 400 2-27 mg by ity of mg 00:00: mouth [place] magnesium 00 daily. Medical Tab Branch magnesium 2020-0 Yes [id number] 400mg Take 400 Univers oxide 400 2-27 mg by ity of mg 00:00: mouth [place] magnesium 00 daily. Medical Tab Branch magnesium 2020-0 Yes [id number] 400mg Take 400 Univers oxide 400 2-27 mg by ity of mg 00:00: mouth [place] magnesium 00 daily. Medical Tab Branch magnesium 2020-0 Yes [id number] 400mg Take 400 Univers oxide 400 2-27 mg by ity of mg 00:00: mouth [place] magnesium 00 daily. Medical Tab Branch magnesium 2020-0 Yes [id number] 400mg Take 400 Univers oxide 400 2-27 mg by ity of mg 00:00: mouth [place] magnesium 00 daily. Medical Tab Branch dexmethylph Yes ADHD 5mg QD Take 1 Nidia is enidate 6-16 (attention capsule by [employer] (FOCALIN 00:00: deficit mouth XR) 5 mg 00 hyperactivi daily extended ty Ctrl#[id number] release disorder) [id number]. capsule Dexmethylph 0 Yes ADHD 5mg Q.5D Take 1 Nidia is enidate 6-16 (attention tablet by H ealth (FOCALIN) 5 00:00: deficit mouth 2 mg tablet 00 hyperactivi times ty daily disorder) Ctrl#[id number]. dexmethylph 2013-0 Yes ADHD 5mg QD Take 1 Nidia is enidate 6-16 (attention capsule by [employer] (FOCALIN 00:00: deficit mouth XR) 5 mg 00 hyperactivi daily extended ty Ctrl#[id number] release disorder) [id number]. capsule Dexmethylph 0 Yes ADHD 5mg Q.5D Take 1 Nidia is enidate 6-16 (attention tablet by H ealth (FOCALIN) 5 00:00: deficit mouth 2 mg tablet 00 hyperactivi times ty daily disorder) Ctrl#[id number]. dexmethylph Yes ADHD 5mg QD Take 1 Nidia is enidate 6-16 (attention capsule by Health (FOCALIN 00:00: deficit mouth XR) 5 mg 00 hyperactivi daily extended ty Ctrl#[id number] release disorder) [id number]. capsule Dexmethylph Yes ADHD 5mg Q.5D Take 1 Nidia is enidate 6-16 (attention tablet by H ealth (FOCALIN) 5 00:00: deficit mouth 2 mg tablet 00 hyperactivi times ty daily disorder) Ctrl#[id number]. dexmethylph 2012-07 Yes ADHD Take 1 cap [...] capsule betamethaso Yes Phimosis Q.5D Apply to [facility] 8-15 affected Health dipropionat 00:00: area 2 e 00 times (DIPROLENE) daily. 0.05 % ointment betamethaso Yes Phimosis Q.5D Apply to [facility] 8-15 affected Health dipropionat 00:00: area 2 e 00 times (DIPROLENE) daily. 0.05 % ointment betamethaso Yes Phimosis Q.5D Apply to [facility] 8-15 affected Health dipropionat 00:00: area 2 [...] Take 1 mg [place] [facility] (INTUNIV) 1 - (attention by mouth. Health mg Tb24 00:00: deficit 00 hyperactivi ty disorder) No known No Univers medications ity of [facility] Immunizations Ordered Filled Immunization Date Status Comments Sour e Immunization Name Name HPV 2018-02-25 Completed University of 00:00:00 [facility] HPV 2018-02-25 Completed University of 00:00:00 [facility] Branch HPV 2018-02-25 Completed University of 00:00:00 [facility] Branch HPV 2018-02-25 Completed University of 00:00:00 [facility] Branch HPV 2018-02-25 Completed University of 00:00:00 [facility] Branch HPV 2018-02-25 Completed University of 00:00:00 [facility] HPV 2018-02-25 Completed University of 00:00:00 [facility] HPV 2018-02-25 Completed University of 00:00:00 [facility] Branch HPV 2018-02-25 Completed University of 00:00:00 [facility] Branch HPV 2018-02-25 Completed University of 00:00:00 [facility] Branch HPV 2018-02-25 Completed University of 00:00:00 [facility] Branch HPV 2018-02-25 Completed University of 00:00:00 [facility] Branch HPV 2018-02-25 Completed University of 00:00:00 [facility] HPV 2018-02-25 Completed University of 00:00:00 [facility] Branch HPV 2016-02-14 Completed University of 00:00:00 [facility] Branch HPV 2016-02-14 Completed University of 00:00:00 [facility] Branch HPV 2016-02-14 Completed University of 00:00:00 [facility] Branch HPV 2016-02-14 Completed University of 00:00:00 [facility] Branch HPV 2016-02-14 Completed University of 00:00:00 [facility] Branch HPV 2016-02-14 Completed University of 00:00:00 [facility] Branch HPV 2016-02-14 Completed University of 00:00:00 [facility] Branch HPV 2016-02-14 Completed University of 00:00:00 [facility] Branch HPV 2016-02-14 Completed University of 00:00:00 [facility] Branch HPV 2016-02-14 Completed University of 00:00:00 [facility] HPV 2016-02-14 Completed University of 00:00:00 [facility] HPV 2016-02-14 Completed University of 00:00:00 [facility] HPV 2016-02-14 Completed University of 00:00:00 [facility] HPV 2016-02-14 Completed University of 00:00:00 [facility] Influenza Vac 2012-04-10 Completed [facility] 00:00:00 (Flumist) Influenza Vac 2012-04-10 Completed [facility] 00:00:00 (Flumist) Influenza Vac 2012-04-10 Completed [facility] 00:00:00 (Flumist) Varicella Vaccine 2011-02-23 Completed [facility] 00:00:00 Varicella Vaccine 2011-02-23 Completed [facility] 00:00:00 Varicella Vaccine 2011-02-23 Completed [facility] 00:00:00 DTaP Diphtheria, 2007-03-17 Completed [facility] eah Tetanus, Acellular, 00:00:00 Pertussis MMR Measles, Mumps, 2007-03-17 Completed [facility] Rubella Vaccine 00:00:00 Poliovirus Ipv 2007-03-17 Completed [facility] lt 00:00:00 DTaP Diphtheria, 2007-03-17 Completed [facility] eah Tetanus, Acellular, 00:00:00 Pertussis MMR Measles, Mumps, 2007-03-17 Completed [facility] Rubella Vaccine 00:00:00 Poliovirus Ipv 2007-03-17 [facility] DTaP Diphtheria, 2007-03-17 Completed [facility] eah Tetanus, Acellular, 00:00:00 Pertussis MMR Measles, Mumps, 2007-03-17 Completed [facility] Rubella Vaccine 00:00:00 Poliovirus Ipv 2007-03-17 [facility] Hepatitis A Vaccine 2006-05-06 Com[facility] 00:00:00 Hepatitis A Vaccine 2006-05-06 Completed [facility] 00:00:00 Hepatitis A Vaccine 2006-05-06 Completed [facility] 00:00:00 Hepatitis A Vaccine 2005-09-25 Completed [facility] 00:00:00 Hepatitis A Vaccine 2005-09-25 Completed [facility] 00:00:00 Hepatitis A Vaccine 2005-09-25 Completed [facility] 00:00:00 DTaP Diphtheria, 2004-03-23 Completed [facility] Tetanus, [facility]cellular, 00:00:00 Pertussis Hepatitis B Vaccine 2004-03-23 Completed [facility] 00:00:00 Hib Haemophilus 2004-03-23 Completed [facility] alth Influenzae Type B 00:00:00 Pneumococcal 2004-03-23 Completed [facility] 7-valent conj 0.5 00:00:00 mL injection Poliovirus Ipv 2004-03-23 Completed [facility] 00:00:00 Varicella Vaccine 2004-03-23 [facility]:00 DTaP Diphtheria, 2004-03-23 Completed [facility] ealt Tetanus, Acellular, 00:00:00 Pertussis Hepatitis B Vaccine 2004-03-23 Completed [facility] 00:00:00 Hib Haemophilus 2004-03-23 Completed [facility] alth Influenzae Type B 00:00:00 Pneumococcal 2004-03-23 Completed [facility] 7-valent conj 0.5 00:00:00 mL injection Poliovirus Ipv 2004-03-23 Completed [facility] 00:00:00 Varicella Vaccine 2004-03-23 [facility]:00 DTaP Diphtheria, 2004-03-23 Completed [facility] Tetanus, Acellular, 00:00:00 Pertussis Hepatitis B Vaccine 2004-03-23 Completed [facility] 00:00:00 Hib Haemophilus 2004-03-23 Completed [facility] alth Influenzae Type B 00:00:00 Pneumococcal 2004-03-[facility]:00 mL injection Poliovirus Ipv 2004-03-23 Completed [facility] 00:00:00 Varicella Vaccine 2004-03-23 Completed [facility] 00:00:00 DTaP Diphtheria, 2003-05-27 Completed [facility] ealth Tetanus, Acellular, 00:00:00 Pertussis Hepatitis B Vaccine 2003-05-27 Completed [facility] 00:00:00 MMR Measles, Mumps, 2003-05-27 Completed [facility] Rubella Vaccine 00:00:00 Pneumococcal 2003-05-27 [facility] 00:00:00 mL injection DTaP Diphtheria, 2003-05-27 Completed [facility] Tetanus, Acellular, 00:00:00 Pertussis Hepatitis B Vaccine 2003-05-27 Completed [facility] 00:00:00 MMR Measles, Mumps, 2003-05-27 Completed [facility] [employer] Rubella Vaccine 00:00:00 Pneumococcal 2003-05-27 Completed Juliano Sheikht h 7-valent conj 0.5 00:00:00 mL injection DTaP Diphtheria, 2003-05-27 Completed [facility] ealth Tetanus, Acellular, 00:00:00 Pertussis Hepatitis B Vaccine 2003-05-27 Completed [facility] [employer] 00:00:00 MMR Measles, Mumps, 2003-05-27 Completed [facility] [employer] Rubella Vaccine 00:00:00 Pneumococcal 2003-05-27 Completed Juliano Vázquez h 7-valent conj 0.5 00:00:00 mL injection DTaP Diphtheria, 2003-05-25 Completed [facility] ealth Tetanus, Acellular, 00:00:00 Pertussis Hepatitis B Vaccine 2003-05-25 Completed [facility] 00:00:00 DTaP Diphtheria, 2003-05-25 Completed [facility] ealth Tetanus, Acellular, 00:00:00 Pertussis Hepatitis B Vaccine 2003-05-25 Completed [facility] 00:00:00 DTaP Diphtheria, 2003-05-25 Completed [facility] ealth Tetanus, Acellular, 00:00:00 Pertussis Hepatitis B Vaccine 2003-05-25 Completed [facility] 00:00:00 Hib Haemophilus 2002 Completed [facility] alth Influenzae Type B 00:00:00 Pneumococcal 2002 Completed Juliano Vázquez h 7-valent conj 0.5 00:00:00 mL injection Poliovirus Ipv 2002 Completed [facility] 00:00:00 Hib Haemophilus 2002 Completed [facility] Influenzae Type B 00:00:00 Pneumococcal 2002 Completed Juliano Sheikht h 7-valent conj 0.5 00:00:00 mL injection Poliovirus Ipv 2002 Completed [facility] 00:00:00 Hib Haemophilus 2002 Completed [facility] Influenzae Type B 00:00:00 Pneumococcal 2002 Completed Juliano Sheikht h 7-valent conj 0.5 00:00:00 mL injection Poliovirus Ipv 2002 Com[facility] 00:00:00 Hepatitis B Vaccine 2002 [facility] 00:00:[facility] Hib Haemophilus 2002 Completed [facility] Influenzae Type B 00:00:00 Pneumococcal 2002 Completed [facility] 7-valent conj 0.5 00:00:00 mL injection Poliovirus Ipv 2002 Com[facility] 00:00:00 Hepatitis B Vaccine 2002 [facility] 00:00:00 Hib Haemophilus 2002 Completed [facility] Influenzae Type B 00:00:00 Pneumococcal 2002 Completed [facility] 7-valent conj 0.5 00:00:00 mL injection Poliovirus Ipv 2002 Completed [facility] 00:00:00 Hepatitis B Vaccine 2002 [facility] 00:00:00 Hib Haemophilus 2002 Completed [facility] al[facility] Influenzae Type B 00:00:00 Pneumococcal [facility]:00:00 mL injection Poliovirus Ipv 2002 Completed [facility] 00:00:00 Vital Signs Vital Name Observation Time Observation Value Comments Source Oxygen saturation in 2020-04-05 14:19:00 98 /min [facility] Arterial blood by [facility] Pulse oximetry Branch Systolic blood 2020-04-05 14:19:00 110 mm[Hg] [facility] Diastolic blood 2020-04-05 14:19:00 68 mm[facility]Hg[facility] 2020-04-05 14:19:00 77 /min [facility] Body temperature 2020-04-05 14:19:00 36.78 Winsome [facility] Respiratory rate 2020-04-05 14:19:00 18 /min [facility] Body weight 2020-04-05 14:19:00 68.72 kg [facility] Oxygen saturation in 2020-04-05 14:19:00 98 /min [facility] Arterial blood by [facility] Pulse oximetry Branch Systolic blood 2020-04-05 14:19:00 110 mm[Hg] [facility] Diastolic blood 2020-04-05 14:19:00 68 mm[Hg] [facility] rsity of pressure [facility] Heart rate 2020-04-05 14:19:00 77 /min [facility] Body temperature 2020-04-05 14:19:00 36.78 Winsome [facility] Respiratory rate 2020-04-05 14:19:00 18 /min [facility] Body weight 2020-04-05 14:19:00 68.72 kg [facility] Body temperature 2019-09-03 16:01:00 37.17 Winsome [facility] Body height 2019-09-03 16:01:00 188.3 cm Universi [facility] Body weight 2019-09-03 16:01:00 71.5 kg [facility] BMI 2019-09-03 16:01:00 20.17 kg/m2 [facility] Procedures Procedure Date / Time Performing Clinician Source Performed ASSIGNMENT OF BENEFITS 2021-07-16 22:34:43 Doctor Unassigned, No [facility] Branch COVID-19 (ID NOW RAPID 2020-04-05 15:40:00 Megan Dudley [facility] TESTING) [facility] NOTICE OF PRIVACY 2020-04-05 13:54:44 Doctor Unassigned, No [facility] PRACTICES Name [facility] CONSENT/REFUSAL FOR 2020-04-05 13:54:29 Doctor Unassigned, No [facility] DIAGNOSIS AND TREATMENT [facility] FERRITIN SERUM 2019-09-03 17:21:00 [facility] 2019-09-03 17:21:00 Darnell [facility] THYROID STIMULATING 2019-09-03 17:21:00 Edith Patrick [facility] HORMONE [facility] COMP. METABOLIC PANEL 2019-09-03 17:21:00 Edith Patrick [facility] ([id number]) [facility] IRON PANEL 2019-09-03 17:21:00 Darnell [facility] CBC WITH DIFFERENTIAL 2019-09-03 17:21:00 Darnell [facility] EXTERNAL PROVIDER 2019-08-05 06:01:00 Doctor Unassigned, No Univ [facility] RECORDS Name Medical Branch Plan of Care Planned Activity Planned Date Details Comments Source Future Scheduled Test 2022-04-07 00:00:00 IMM Influenza [facility] Seasonal (>/= 19 yrs) [code = IMM Influenza Seasonal (>/= 19 yrs)] Future Scheduled Test 2022-04-07 00:00:00 IMM Influenza [facility] Seasonal (>/= 19 yrs) [code = IMM Influenza Seasonal (>/= 19 yrs)] Future Scheduled Test 2021-03-08 00:00:00 IMM Influenza (#1) [facility] [code = IMM Influenza (#1)] Future Scheduled Test 2018 00:00:00 IMM MCV4 (1 - 2-dose [facility] series) [code = IMM MCV4 (1 - 2-dose series)] Future Scheduled Test 2014 00:00:00 COVID-19 Vaccine (1) [facility] [code = COVID-19 Vaccine (1)] Future Scheduled Test 2013 00:00:00 IMM HPV (1 - Male [facility] 2-dose series) [code = IMM HPV (1 - Male 2-dose series)] Future Scheduled Test 2009 00:00:00 IMM diph/tet/pertus [facility] (4 - Tdap) [code = IMM diph/tet/pertus (4 - Tdap)] Future Scheduled Test 2002 00:00:00 COVID-19 Vaccine (#1) [facility] [code = COVID-19 Vaccine (#1)] Future Scheduled Test 2002 00:00:00 COVID-19 Vaccine (#1) [facility] [code = COVID-19 Vaccine (#1)] Future Scheduled Test 2002 00:00:00 Fluoride Varnish [facility] [code = Fluoride Varnish] Encounters Start End Encounter Admission Attending Care Care Encounter Source Date/Time Date/Time Type Type Clinicians Facility Department ID 2021-05-05 Emergency [facility] [id number] Univers 19:56:46 [facility] 2021-07-16 2021-07-16 Outpatient Elliott BATES [facility] [id number] Univers 16:45:00 17:51:21 KIP [facility] 2021-07-16 2021-07-16 Laboratory Only, [facility] Test PAULA 1.2.8 [id number] [id number] Univers 16:45:00 17:00:00 Only Unknown, Attending PEDIATRIC [id number] 10 [id number] [id number] [address] 2021-07-16 2021-07-16 Orders Doctor THOMAS [id number] Univers 00:00:00 00:00:00 Only Unassigned, GÓMEZ [id number] ity of [place] [facility] [id number] Tom as [id number] [facility] 009 Branch 2020-04-05 2020-04-05 Emergency [facility] [id number] Univers 09:20:00 12:20:00 Megan Avila [id number] i ty [id number] [id number] [facility] 084 Branch 2020-04-05 2020-04-05 Emergency [facility], [facility] [id number] 09:20:00 12:20:00 Megan [place] [id number] [place] [id number] [place] [id number] [facility] 2019-10-28 2019-10-28 [facility] [id number] Univers 07:28:00 09:59:00 ne Visit Sumaya Burris SPECIALTY [id number] ity of [id number] [id number] [facility] 168 Branch 2019-10-28 2019-10-28 [facility]ici [facility] [id number] 07:28:00 09:59:00 ne Visit Sumaya Burris SPECIALTY [id number] [place] [id number] [place] [id number] 2019-10-28 2019-10-28 Outpatient R GENNY [facility] [id number] Univers 08:00:00 08:00:[address] [facility] 2019-09-22 2019-09-22 Telephone [facility] [id number] Univers 00:00:00 00:00:00 Sumaya J SPECIALTY [id number] [id number] [id number] [address] 2019-09-15 2019-09-15 [facility] 1.2.840.114 [id number] Univers 15:05:00 23:59:00 Encounter Sumaya J SPECIALTY [id number] [id number] [id number] [address] 2019-09-15 2019-09-15 [facility] [id number] Univers 15:04:00 15:04:00 Encounter Sumaya J SPECIALTY [id number] [id number] [id number] [address] 2019-09-15 2019-09-15 Outpatient R [facility] [id number] Univers 15:03:51 15:03:[address] [facility] 2019-09-15 2019-09-15 [facility] [id number] Univers 15:03:00 15:03:00 Encounter Sumaya J SPECIALTY [id number] it[id number] [id number] [address] 2019-09-15 2019-09-15 Telephone [facility] [id number] Univers 00:00:00 00:00:00 Sumaya J SPECIALTY [id number] [id number] [id number] [address] 2019-09-03 2019-09-03 Office [facility] [id number] Univers 09:48:34 11:24:21 Visit Sumaya J SPECIALTY [id number] it[place] [phone] [facility] [address] 2019-09-03 2019-09-03 Outpatient R [facility] [id number] Univers 10:30:00 10:30:[address] [facility] 2019-08-05 2019-08-05 Orders Doctor THOMAS [id number] Univers 00:00:00 00:00:00 Only Unassigned, GÓMEZ 350.1.13.10 ity of [place] [facility] 4.2.7.2.686 [place] as [id number] [facility] [address] Results Test Description Test Time Test Comments Results Result Comments Source COVID-19 (ID NOW RAPID TESTING) 2020-04-05 16:31:00 Test Item Value Reference Range Interpretation Comme nts SARS-CoV-2 Rapid ID NOW (test code Not Detected Not Detected = 41757-6) BECKY (test code = BECKY) ID NOW COVID-19 Assay is an isothermal nucleic acid amplification test intended for the qualitative detection of nucleic acid from SARS-CoV-2 viral RNA in nasopharyngeal (FLEET COORDINATOR) specimens. It is used under Emergency Use [...] indicated. Lab Interpretation (test code = Normal 99153-8) [facility] [id number] 01:23:00 Test Item Value Reference Range Interpretation Comments FREE T4 (test code = See_Comment [Autom ated message] 6392998199) The system [employer] generated this result transmitted ref erence range: 0.78 - 2 .20 ng/dL:. The ref erence range was not u sed to interpret this result as normal/abnor mal. Lab Interpretation (test Normal code = 89088-2) [facility] [id number] 01:23:00 Test Item Value Reference Range Interpretation Comments FREE T4 (test code = See_Comment [Autom ated message] [id number]) The system [employer] generated this result transmitted ref erence range: 0.78 - 2 .20 ng/dL:. The ref erence range was not u sed to interpret this result as normal/abnor mal. Lab Interpretation (test Normal code = 43070-1) [id number]:37[facility]00 Test Item Value Reference Range Interpretation Comments FERRITIN (test code = 20.3 ng/mL 18-464 7710668663) BECKY (test code = BECKY) Biotin has been reported to cause a negative bias, interpret results relative to patient's use of biotin. Lab Interpretation (test Normal code = 10641-0) [facility] [id number] 21:37:00 Test Item Value Reference Range Interpretation Comments FERRITIN (test code = 20.3 ng/mL 18-464 7036694462) BECKY (test code = BECKY) Biotin has been reported to cause a negative bias, interpret results relative to patient's use of biotin. Lab Interpretation (test Normal code = 68524-2) [facility] [id number] 21:33:00 Test Item Value Reference Range Interpretation Comments TSH (test code = See_Comment [Automated message] [id number]) The system [employer] generated this result transmitted ref erence range: 0.45 - 4 .70 mIU/L. The refe rence range was not u sed to interpret this result as normal/abnor mal. Lab Interpretation (test Normal code = 13922-7) [facility] [id number] 21:33:00 Test Item Value Reference Range Interpretation Comments TSH (test code = See_Comment [Automated message] [id number]) The system [employer] generated this result transmitted ref erence range: 0.45 - 4 .70 mIU/L. The refe rence range was not u sed to interpret this result as normal/abnor mal. Lab Interpretation (test Normal code = 86332-3) [facility] [id number] 21:08:00 Test Item Value Reference Range Interpretation Comments IRON (test code = 6940139520) 115 ug/dL 50-160 TIBC (test code = 7746938465) 375 ug/dL 250-410 % FE SAT (test code = 3898449949) 31 % 20-50 Lab Interpretation (test code = Normal 24947-6) [facility] [id number] 21:08:00 Test Item Value Reference Range Interpretation Comments IRON (test code = 5014129631) 115 ug/dL 50-160 TIBC (test code = 6853279905) 375 ug/dL 250-410 % FE SAT (test code = 8398812258) 31 % 20-50 Lab Interpretation (test code = Normal 60189-9) [facility] METABOLIC PANEL ([id number])2019-09-03 20:58:00 Test Item Value Reference Range Interpretation Comments NA (test code = 141 mmol/L 135-145 1267248283) K (test code = 4.2 mmol/L 3.5-5 4017018022) CL (test code = 102 mmol/L 98-108 0013394924) CO2 TOTAL (test code = 31 mmol/L 23-31 3582040187) AGAP (test code = 2-16 5819856372) BUN (test code = 12 mg/dL 7-23 4179851426) GLUCOSE (test code = 67 mg/dL 70-110 L 9409843329) CREATININE (test code = 0.82 mg/dL 0.6-1.25 4339219373) TOTAL BILI (test code = 0.5 mg/dL 0.1-1.3 9105672597) CALCIUM (test code = 9.9 mg/dL 8.6-10.6 3743873632) T PROTEIN (test code = 7.4 g/dL 6.3-8.2 0065606607) ALBUMIN (test code = 4.4 g/dL 3.5-5 2609516473) ALK PHOS (test code = 163 U/L 34-122 H 9549605658) ALTv (test code = 15 U/L 5-50 1742-6) AST(SGOT) (test code = 24 U/L 13-40 4329162106) BECKY (test code = BECKY) Association of [...] tests). Lab Interpretation Abnormal (test code = 83337-1) [facility]. METABOLIC PANEL ([id number])2019-09-03 20:58:00 Test Item Value Reference Range Interpretation Comments NA (test code = 141 mmol/L 135-145 6059624173) K (test code = 4.2 mmol/L 3.5-5 8135375986) CL (test code = 102 mmol/L 98-108 0921284769) CO2 TOTAL (test code = 31 mmol/L 23-31 0186605952) AGAP (test code = 2-16 5799311200) BUN (test code = 12 mg/dL 7-23 3759315803) GLUCOSE (test code = 67 mg/dL 70-110 L 0467860902) CREATININE (test code = 0.82 mg/dL 0.6-1.25 9358319506) TOTAL BILI (test code = 0.5 mg/dL 0.1-1.0 1018645637) CALCIUM (test code = 9.9 mg/dL 8.6-10.6 6926281263) T PROTEIN (test code = 7.4 g/dL 6.3-8.2 5069714935) ALBUMIN (test code = 4.4 g/dL 3.5-5 1918050399) ALK PHOS (test code = 163 U/L 34-122 H 9340720435) ALTv (test code = 15 U/L 5-50 2-6) AST(SGOT) (test code = 24 U/L 13-40 9394571276) BECKY (test code = BECKY) Association of [...] tests). Lab Interpretation Abnormal (test code = 77064-7) [facility] WITH [id number] 20:09:00 Test Item Value Reference Range Interpretation Comments WBC (test code = See_Comment [Automated message] 6690-2) The system [employer] generated this result transmitted ref erence range: 4.50 - 1 3.50 10*3/?L. The re ference range was not u sed to interpret this result as normal/abnor mal. RBC (test code = See_Comment [Automated message] 789-8) The system [employer] generated this result transmitted ref erence range: [...] RDW-SD (test code 41.8 fL 38.5-49 = 10592-0) RDW-CV (test code 12.8 % 11.5-14 = 788-0) PLT (test code = See_Comment [Automated message] 777-3) The system [employer] generated this result transmitted ref erence range: 133 - 32 0 10*3/?L. The re ference range was not u sed to interpret this result as normal/abnor mal. MPV (test code = 10.4 fL 9.3-12.9 96122-2) NRBC/100 WBC (test See_Comment [Automat ed message] code = 7839161365) The syste m which generated this result transmitted ref erence range: 0.0 - 10 .0 /100 WBCs. The refer ence range was not u sed to interpret this result as normal/abnor mal. NRBC x10^3 (test <0.01 See_Comment [Automated message] code = 4571191946) The syste m which generated this result transmitted ref erence range: 10*3/?L. The reference range was not used to interpr et this result as normal/abnormal . GRAN MAT (NEUT) % 49.3 % (test code = 770-8) IMM GRAN % (test 0.10 % code = 4309563556) LYMPH % (test code 39.4 % = 736-9) MONO % (test code 7.2 % = 5905-5) EOS % (test code = 3.0 % 713-8) BASO % (test code 1.0 % = 706-2) GRAN MAT 3.42 10*3/uL 1.5-10.3 x10^3(ANC) (test code = 5022738353) IMM GRAN x10^3 <0.03 0-0.06 (test code = 0515364915) LYMPH x10^3 (test 2.74 10*3/uL 0.7-7.4 code = 731-0) MONO x10^3 (test 0.50 10*3/uL 0-0.5 code = 742-7) EOS x10^3 (test 0.21 10*3/uL 0-0.4 code = 711-2) BASO x10^3 (test 0.07 10*3/uL 0-0.1 code = 704-7) [facility] WITH [id number] 20:09:00 Test Item Value Reference Range Interpretation Comments WBC (test code = See_Comment [Automated message] 5790-2) The system [employer] generated this result transmitted ref erence range: 4.50 - 1 3.50 10*3/?L. The re ference range was not u sed to interpret this result as normal/abnor mal. RBC (test code = See_Comment [Automated message] 789-8) The system [employer] generated this result transmitted ref erence range: [...] RDW-SD (test code 41.8 fL 38.5-49 = 49545-6) RDW-CV (test code 12.8 % 11.5-14 = 788-0) PLT (test code = See_Comment [Automated message] 777-3) The system whic h generated this result transmitted ref erence range: 133 - 32 0 10*3/?L. The re ference range was not u sed to interpret this result as normal/abnor mal. MPV (test code = 10.4 fL 9.3-12.9 54638-1) NRBC/100 WBC (test See_Comment [Automat ed message] code = 1269504015) The syste m which generated this result transmitted ref erence range: 0.0 - 10 .0 /100 WBCs. The refer ence range was not u sed to interpret this result as normal/abnor mal. NRBC x10^3 (test <0.01 See_Comment [Automated message] code = 9290636038) The syste m which generated this result transmitted ref erence range: 10*3/?L. The reference range was not used to interpr et this result as normal/abnormal . GRAN MAT (NEUT) % 49.3 % (test code = 770-8) IMM GRAN % (test 0.10 % code = 3224737217) LYMPH % (test code 39.4 % = 736-9) MONO % (test code 7.2 % = 5905-5) EOS % (test code = 3.0 % 713-8) BASO % (test code 1.0 % = 706-2) GRAN MAT 3.42 10*3/uL 1.5-10.3 x10^3(ANC) (test code = 7816177479) IMM GRAN x10^3 <0.03 0-0.06 (test code = 5304197467) LYMPH x10^3 (test 2.74 10*3/uL 0.7-7.4 code = 731-0) MONO x10^3 (test 0.50 10*3/uL 0-0.5 code = 742-7) EOS x10^3 (test 0.21 10*3/uL 0-0.4 code = 711-2) BASO x10^3 (test 0.07 10*3/uL 0-0.1 code = 704-7) [facility]"
[2022-06-06] MEDS ORDERED: NA CHLORIDE 0.9% 1,000 ML ONE (00:22)
[2022-06-06] MEDS ORDERED: ONDANSETRON 4 MG/2 ML VIAL ONE (00:22)
[2022-06-06 00:35] LABS: Absolute Lymphocytes (CBC) 3.2 K/uL (0.7-4.9); Hematocrit 40.7 % (39.6-49.0); Lymphocytes % 42.6 % (15.3-44.8); MPV 7.7 fL (7.6-11.3); RBC Red Blood Cell Count 4.62 M/uL (4.33-5.43)
[2022-06-06 00:45] LABS: Albumin 4.2 g/dL (3.4-5.0); Bilirubin Total 0.3 mg/dL (0.2-1.0); Protein, Total 7.3 g/dL (6.4-8.2)
[2022-06-06] MEDS ORDERED: FAMOTIDINE 20 MG/2 ML VIAL IV ONE (00:48)
--- NOTE | 2022-06-06 03:27 | EDPHYS ---
Physician Documentation [facility] Name: Denise Vanessa Jr Age: 22 yrs Sex: Male : 2000 Arrival Date: 06/05/2022 Time: 23:19 Bed 15 Private MD: ED Physician Ed Nix HPI: 06/05 23:45 This 22 yrs old Male presents to ER via Ambulatory with complaints of Abdominal Pain, cp Dizziness, Nausea. 23:45 The patient presents with abdominal pain in the upper abdomen. cp 23:45 Onset: The symptoms/episode began/occurred 2 day(s) ago. cp 23:45 The symptoms do not radiate. Associated signs and symptoms: Pertinent positives: nausea cp and vomiting, anorexia, dizziness, Pertinent negatives: chest pain, constipation, diarrhea, dysuria, fever. The symptoms are described as sharp. Severity of pain: in the emergency department the pain is unchanged despite home interventions. Historical: - Allergies: 23:36 No Known Allergies; tw5 - Home Meds: 23:36 None [Active]; tw5 - PMHx: 23:36 Anxiety; Migraines; tw5 - PSHx: 23:36 tubes in Ears; tw5 - Immunization history:: Flu vaccine is not up to date. - Social history:: Smoking status: Patient denies any tobacco usage or history of. ROS: 23:52 Constitutional: Negative for body aches, chills, fever, poor PO intake. cp 23:52 Eyes: Negative for injury, pain, redness, and discharge. cp 23:52 ENT: Negative for drainage from ear(s), ear pain, sore throat, difficulty swallowing, difficulty handling secretions. 23:52 Cardiovascular: Negative for chest pain, palpitations. 23:52 Respiratory: Negative for cough, shortness of breath, wheezing. 23:52 Abdomen/GI: Positive for abdominal pain, nausea, vomiting, anorexia, of the right upper quadrant and left upper quadrant, Negative for diarrhea, constipation. 23:52 Back: Negative for pain at rest, pain with movement. 23:52 : Negative for urinary symptoms, flank pain, testicular pain 23:52 Neuro: Negative for altered mental status, dizziness, headache, weakness. 23:52 All other systems are negative. Exam: 23:55 Constitutional: The patient appears in no acute distress, alert, awake, cp non-diaphoretic, non-toxic, well developed, well nourished, uncomfortable. 23:55 Head/Face: Normocephalic, atraumatic. cp 23:55 Eyes: Periorbital structures: appear normal, Conjunctiva: normal, no exudate, no injection, Sclera: no appreciated abnormality, Lids and lashes: appear normal, bilaterally. 23:55 ENT: External ear(s): are unremarkable, Nose: is normal, Mouth: Lips: moist, Oral mucosa: moist, Posterior pharynx: Airway: no evidence of obstruction, patent. 23:55 Neck: ROM/movement: is normal, is supple, without pain, no range of motions limitations. 23:55 Chest/axilla: Inspection: normal. 23:55 Cardiovascular: Rate: normal, Rhythm: regular. 23:55 Respiratory: the patient does not display signs of respiratory distress, Respirations: normal, no use of accessory muscles, no retractions, labored breathing, is not present, Breath sounds: are clear throughout, no decreased breath sounds, no stridor, no wheezing. 23:55 Abdomen/GI: Inspection: abdomen appears normal, Bowel sounds: active, all quadrants, Palpation: soft, in all quadrants, moderate abdominal tenderness, in the right upper quadrant and left upper quadrant, rebound tenderness, is not appreciated, involuntary guarding, is not appreciated. 23:55 Back: pain, is absent, ROM is normal. Vital Signs: 23:35 BP 106 / 66; Pulse 77; Resp 18; Temp 98.3; Pulse Ox 98% on R/A; Weight 68.04 kg; Height tw5 6 ft. 3 in. (190.50 cm); Pain 4/10; 06/06 01:06 BP 112 / 62; Pulse 51; Resp 17; Temp 98.2; Pulse Ox 98% on R/A; Pain 1/10; ke1 03:06 BP 117 / 67; Pulse 54; Resp 16; Temp 98.2; Pulse Ox 100% ; Pain 0/10; ke1 06/05 23:35 Body Mass Index 18.75 (68.04 kg, 190.50 cm) tw5 MDM: 06/05 23:41 Patient medically screened. [facility] 06/06 00:00 Differential diagnosis: appendicitis, cholecystitis, Cholelithiasis, gastritis, cp non-specific abd pain, pancreatitis, Peptic Ulcer Disease, Perf. Duodenal Ulcer, Perf. Gastric Ulcer, Pyelonephritis, Ureterolithiasis, urinary tract infection. 03:26 Data reviewed: vital signs, nurses notes, lab test result(s), radiologic studies, CT cp scan. 03:26 Counseling: I had a detailed discussion with the patient and/or guardian regarding: the cp historical points, exam findings, and any diagnostic results supporting the discharge/admit diagnosis, lab results, radiology results, to return to the emergency department if symptoms worsen or persist or if there are any questions or concerns that arise at home. Response to treatment: the patient's symptoms have markedly improved after treatment, and as a result, I will discharge patient. Special discussion: Based on the patient's Hx, exam, and Dx evaluation, there is no indication for emergent surgery or inpatient Tx. It is understood by the patient/guardian that if the Sx's persist or worsen they need to return immediately for re-evaluation. 06/05 23:43 Order name: CBC with Diff; Complete Time: 01:04 cp 06/06 01:04 Interpretation: Normal except: HGB 13.5. cp 06/05 23:43 Order name: CMP; Complete Time: 01:04 cp 06/06 01:04 Interpretation: Normal except: AST 12. cp 06/05 23:43 Order name: Lipase; Complete Time: 01:04 cp 06/06 01:05 Order name: CT Abd/Pelvis - IV Contrast Only cp 06/05 23:43 Order name: IV Saline Lock; Complete Time: 00:19 cp 06/05 23:43 Order name: Labs collected and sent; Complete Time: 00:19 cp 06/06 03:06 Order name: US Abdomen Limited: gallbladder cp 06/06 03:25 Order name: PO challenge cp Administered Medications: 00:26 Drug: NS 0.9% 1000 ml Route: IV; Rate: 1 bolus; Site: right forearm; ke1 00:30 Follow up: IV Status: Completed infusion ke1 00:27 Drug: Zofran (Ondansetron) 4 mg Route: IVP; Site: right forearm; ke1 02:05 Follow up: Response: Nausea is decreased ke1 01:06 Drug: Pepcid (famotidine) 20 mg Route: IVP; Site: right forearm; ke1 02:05 Follow up: Response: Marked relief of symptoms ke1 Disposition Summary: 06/06/22 03:27 Discharge Ordered Location: Home cp Problem: new cp Symptoms: have improved cp Condition: Stable cp Diagnosis - Upper abdominal pain, unspecified cp - Nausea with vomiting, unspecified cp Followup: cp - With: Private Physician - When: 2 - 3 days - Reason: Recheck today's complaints Discharge Instructions: - Discharge Summary Sheet cp - Abdominal Pain, Adult cp - Nausea and Vomiting, Adult cp - Form - Excuse from Work, School, or Physical Activity cp Forms: - Medication Reconciliation Form cp - Thank You Letter cp - Antibiotic Education cp - Prescription Opioid Use cp - Work release form ke1 Prescriptions: - Pepcid 20 mg Oral Tablet - take 1 tablet by ORAL route every 12 hours for 10 days; 20 tablet; Refills: 0, cp Product Selection Permitted - Zofran 4 mg Oral Tablet - take 1 tablet by ORAL route every 12 hours As needed; 20 tablet; Refills: 0, cp Product Selection Permitted Addendum: 06/10/2022 07:51 Co-signature as Attending Physician, Ed Nix MD I agree with the assessment and c bedolla plan of care. Signatures: Dispatcher [employer] Ed Coleman MD MD cha Page, Corey, PA Coco Daniels cp tw5 Nilam Ruvalcaba RN RN ke1
--- NOTE | 2022-06-06 03:27 | ER ---
Nurse's Notes [facility] Name: Denise Vanessa Jr Age: 22 yrs Sex: Male : 2000 Arrival Date: 06/05/2022 Time: 23:19 Bed 15 Private MD: Diagnosis: Upper abdominal pain, unspecified;Nausea with vomiting, unspecified Presentation: 06/05 23:35 Chief complaint: Patient states: "I have a sharp needle pain in my stomach, it is tw5 causing me to be dizzy and nauseous. I have not been able to keep anything down for the past two days.". Coronavirus screen: Vaccine status: Patient reports receiving the 1st dose of the Covid vaccine. Moderna. Ebola Screen: Patient negative for fever greater than or equal to 101.5 degrees Fahrenheit, and additional compatible Ebola Virus Disease symptoms Patient denies exposure to infectious person. Patient denies travel to an Ebola-affected area in the 21 days before illness onset. Initial Sepsis Screen: Does the patient meet any 2 criteria? No. Patient's initial sepsis screen is negative. Does the patient have a suspected source of infection? Yes: Acute abdominal pain. Risk Assessment: Do you want to hurt yourself or someone else? Patient reports no desire to harm self or others. Onset of symptoms was June 03, 2022. 23:35 Method Of Arrival: Ambulatory tw5 23:35 Acuity: POONAM 3 tw5 Triage Assessment: 23:36 General: Appears slender, Behavior is calm, cooperative. Pain: Complains of pain in tw5 epigastric area, right upper quadrant and left upper quadrant Pain currently is 4 out of 10 on a pain scale. GI: Reports intolerance of fluids, intolerance of food, nausea, vomiting. Historical: - Allergies: 23:36 No Known Allergies; tw5 - Home Meds: 23:36 None [Active]; tw5 - PMHx: 23:36 Anxiety; Migraines; tw5 - PSHx: 23:36 tubes in Ears; tw5 - Immunization history:: Flu vaccine is not up to date. - Social history:: Smoking status: Patient denies any tobacco usage or history of. Screenin:50 Abuse screen: Denies threats or abuse. Nutritional screening: No deficits noted. ke1 Tuberculosis screening: No symptoms or risk factors identified. Fall Risk None identified. Assessment: 23:50 GI: Bowel sounds present X 4 quads. Abd is soft Abd is non tender. ke1 06/06 02:03 Reassessment: Patient appears in no apparent distress at this time. Patient states ke1 feeling better. Patient states symptoms have improved. 03:07 Reassessment: Lying in bed sleeping. ke1 Vital Signs: 06/05 23:35 BP 106 / 66; Pulse 77; Resp 18; Temp 98.3; Pulse Ox 98% on R/A; Weight 68.04 kg; Height tw5 6 ft. 3 in. (190.50 cm); Pain 4/10; 06/06 01:06 BP 112 / 62; Pulse 51; Resp 17; Temp 98.2; Pulse Ox 98% on R/A; Pain 1/10; ke1 03:06 BP 117 / 67; Pulse 54; Resp 16; Temp 98.2; Pulse Ox 100% ; Pain 0/10; ke1 06/05 23:35 Body Mass Index 18.75 (68.04 kg, 190.50 cm) tw5 ED Course: 06/05 23:19 Patient arrived in ED. ja2 23:36 Ed Jade PA is PHCP. cp 23:36 Ed Nix MD is Attending Physician. cp 23:36 Triage completed. tw5 23:36 Arm band placed on. tw5 23:50 Bed in low position. Call light in reach. ke1 23:53 Nilam Ruvalcaba, RN is Primary Nurse. ke1 06/06 00:18 Inserted saline lock: 20 gauge in left forearm, using aseptic technique. ke1 00:19 CBC with Diff Sent. ke1 00:19 CMP Sent. ke1 00:19 Lipase Sent. ke1 00:19 Urine Microscopic Only Sent. ke1 02:20 CT Abd/Pelvis - IV Contrast Only In Process Unspecified. EDMS 03:28 US Abdomen Limited: gallbladder In Process Unspecified. EDMS 03:41 No provider procedures requiring assistance completed. IV discontinued. ke1 Administered Medications: 00:26 Drug: NS 0.9% 1000 ml Route: IV; Rate: 1 bolus; Site: right forearm; ke1 00:30 Follow up: IV Status: Completed infusion ke1 00:27 Drug: Zofran (Ondansetron) 4 mg Route: IVP; Site: right forearm; ke1 02:05 Follow up: Response: Nausea is decreased ke1 01:06 Drug: Pepcid (famotidine) 20 mg Route: IVP; Site: right forearm; ke1 02:05 Follow up: Response: Marked relief of symptoms ke1 Medication: 03:41 VIS not applicable for this client. ke1 Outcome: 03:27 Discharge ordered by MD. smith 03:41 Discharged to home ambulatory. ke1 03:41 Condition: good 03:41 Discharge instructions given to patient. 03:41 Patient left the ED. ke1 Signatures: Dispatcher [employer] EDMS Ed Jade PA PA cp Alexander, Jessica ja2 Wood, Tiffany tw5 Nilam Ruvalcaba RN RN ke1
[2022-06-06 03:58] VITALS: TEMP 98.2
[2022-06-06 03:59] VITALS: BP 117/67; O2SAT 100
--- NOTE | 2022-06-06 14:20 | RAD REPORT ---
EXAM DESCRIPTION: CT - Abdomen Pelvis W Contrast - 06/06/2022 6:43 am CLINICAL HISTORY: The patient is 22 years old and is Male; abdominal pain TECHNIQUE: Axial computed tomography images of the abdomen and pelvis with intravenous contrast. S agittal and coronal reformatted images were created and reviewed. This CT exam was performed using one or more of the following dose reduction techniques: automated exposure control, adjustment of t he mA and/or kV according to patient size, and/or use of iterative reconstruction technique. COMPARISON: No relevant prior studies available. FINDINGS: LUNG BASES: Unremarkable. No mass. No consolidation. ABDOMEN: LIVER: Periportal edema is visualized within the liver along with mild hepatic congestion. No wilfredo er masses identified. GALLBLADDER AND BILE DUCTS: The gallbladder is contracted. PANCREAS: No ductal dilation. No mass. SPLEEN: Unremarkable. ADRENALS: Unremarkable. No mass. KIDNEYS AND URETERS: Unremarkable. The kidneys enhance symmetrically. No obstructing renal or ure teral calculus is seen. No hydronephrosis or hydroureter. No perinephric fluid or stranding. STOMACH AND BOWEL: The stomach is distended with food contents. The small bowel is relatively nor mal in caliber. Stool is present throughout colon. There is no mucosal thickening or evidence of obst ruction. PELVIS: APPENDIX: The appendix is normal in caliber without surrounding inflammation. BLADDER: The bladder is well distended. REPRODUCTIVE: Unremarkable as visualized. ABDOMEN and PELVIS: INTRAPERITONEAL SPACE: Unremarkable. No free air. No significant fluid collection. BONES/JOINTS: No acute fracture. SOFT TISSUES: The soft tissues are normal. VASCULATURE: Unremarkable. No abdominal aortic aneurysm. LYMPH NODES: Unremarkable. No enlarged lymph nodes. IMPRESSION: Periportal edema is visualized within the liver along with mild hepatic congestion. No l iver masses identified. Periportal edema and mild hepatic congestion. This finding is nonspecific a nd can be seen with vigorous intravenous hydration as well as hepatitis. Clinical correlation is alphonse mmended. Electronically signed by: Shelli Vaughan MD 06/06/2022 2:57 AM ALLERGY AND IMMUNOLOGY CHIEF Due to temporary technical issues with the PACS/Fluency reporting system, reports are being signed by the in house radiologists without review as a courtesy to insure prompt reporting. The interpreting radiologist is fully responsible for the content of the report.
--- NOTE | 2022-06-06 14:42 | RAD REPORT ---
EXAM DESCRIPTION: US - Abdomen Exam Limited - 06/06/2022 3:26 am CLINICAL HISTORY: The patient is 22 years old and is Male; upper abdomen pain TECHNIQUE: Real-time ultrasound of the right upper quadrant with image documentation. COMPARISON: CT abdomen pelvis June 06, 2022. FINDINGS: Gallbladder: No cholelithiasis or sludge. Gallbladder is contracted. Common bile duct: Common bile duct 2.1 mm in diameter. No stones. No dilation. Pancreas: Pancreas not visualized. IMPRESSION: No cholelithiasis or sludge. Gallbladder is contracted. Electronically signed by: Melani Harris MD 06/06/2022 4:15 AM TEAM GUIDE Due to temporary technical issues with the PACS/Fluency reporting system, reports are being signed by the in house radiologists without review as a courtesy to insure prompt reporting. The interpreting radiologist is fully responsible for the content of the report.
== END 2022-06-06 03:41 | disposition home or self-care (01) ==
LOC: ER 23:15
DX: R10.10 Upper abdominal pain, unspecified (principal); R11.2 Nausea with vomiting, unspecified
CPT/HCPCS: 85025; 36415; 83690; 80053; 74177; 76705; 96375; 96374; 99284; Q9967; J7030; J2405

== ENCOUNTER → 2023-07-15 | Emergency (ER) | payer SELFPAY ==
--- NOTE | 2023-07-15 13:47 | RAD REPORT ---
EXAM DESCRIPTION: RAD - Chest Pa And Lat (2 Views) - 07/15/2023 1:38 pm CLINICAL HISTORY: COUGH COMPARISON: Chest Single View dated 04/24/2022; Chest Single View dated 08/18/2019 TECHNIQUE: PA and lateral views of the chest were obtained. FINDINGS: The lungs are clear. Heart size is normal and central vasculature is within normal limits. No pleural effusion or pneumothorax seen. No acute bony finding noted. IMPRESSION: No acute cardiopulmonary process.
[2023-07-15 14:00] LABS: SARS-COV-2 RT PCR NEGATIVE (NEGATIVE)
--- NOTE | 2023-07-15 14:55 | EDPHYS ---
Physician Documentation [facility] Name: Denise Vanessa Jr Age: 23 yrs Sex: Male : 2000 Arrival Date: 07/15/2023 Time: 10:44 Bed 22 Private MD: ED Physician Steven Maciel HPI: 07/15 12:58 This 23 yrs old Male presents to ER via Ambulatory with complaints of Cough, Congestion.ms3 12:58 23-year-old male past medical history of anxiety, migraines presents to the emergency ms3 department for cough, sore throat that been ongoing for 1 weeks. Patient states cough drops make the pain better. Patient states his throat pain is a 5/10. Patient denies inciting factors. Historical: - PMHx: 11:36 Anxiety; Migraines; iw - PSHx: 11:36 tubes in Ears; iw - Immunization history:: Adult Immunizations up to date. - Social history:: Smoking status: Patient denies any tobacco usage or history of. ROS: 14:54 Constitutional: Negative for fever, and chills. Neck: Negative for injury, pain, and ms3 swelling, Cardiovascular: Negative for chest pain, and palpitations. Abdomen/GI: Negative for abdominal pain, nausea, vomiting, diarrhea, and constipation, MS/Extremity: Negative for injury and deformity, Skin: Negative for injury, rash, and discoloration, 14:54 ENT: Positive for sore throat, 14:54 Respiratory: Positive for cough, 14:54 All other systems are negative, Exam: 14:54 Constitutional: This is a well developed, well nourished patient who is awake, alert, ms3 and in no acute distress. Head/Face: Normocephalic, atraumatic. Chest/axilla: Normal chest wall appearance and motion. Nontender with no deformity. Cardiovascular: Regular rate and rhythm with a normal S1 and S2. No gallops, murmurs, or rubs. Normal PMI, no JVD. No pulse deficits. Respiratory: Lungs have equal breath sounds bilaterally, clear to auscultation and percussion. No rales, rhonchi or wheezes noted. No increased work of breathing, no retractions or nasal flaring. Abdomen/GI: Soft, non-tender, with normal bowel sounds. No distension or tympany. No guarding or rebound. No evidence of tenderness throughout. Skin: Warm, dry with normal turgor. Normal color with no rashes, no lesions, and no evidence of cellulitis. 14:54 ENT: Posterior pharynx: Airway: normal, patent, Uvula: normal, midline, swelling, that is mild, erythema, that is mild, exudate, that is mild, peritonsillar mass, is not appreciated, pooling of secretions, is not appreciated, Vital Signs: 11:36 BP 106 / 58; Pulse 62; Resp 16; Temp 98; Pulse Ox 98% ; Weight 81.65 kg; Height 6 ft. 4 iw in. ; 14:55 BP 110 / 68; Pulse 65; Resp 18; Pulse Ox 100% ; kb3 11:36 Body Mass Index 21.91 (81.65 kg, 193.04 cm) iw MDM: 12:57 Patient medically screened. ms3 14:54 Differential Diagnosis: Bronchitis Influenza Upper Respiratory Infection. Data ms3 reviewed: vital signs, nurses notes, lab test result(s), radiologic studies, plain films, and as a result, I will discharge patient. Independent interpretation of the following test(s) in the Emergency Department X-Ray: My interpretation is Chest x-ray images reviewed by me do not reveal pneumonia. Counseling: I had a detailed discussion with the patient and/or guardian regarding the historical points, exam findings, and any diagnostic results supporting the discharge/admit diagnosis, lab results, radiology results, the need for outpatient follow up, to return to the emergency department if symptoms worsen or persist or if there are any questions or concerns that arise at home. Special discussion: I discussed with the patient/guardian in detail that at this point there is no indication for admission to the hospital. It is understood, however, that if the symptoms persist or worsen the patient needs to return immediately for re-evaluation. ED course: Discussed labs and chest x-ray with patient. Patient to follow-up with primary care physician in 2 to 3 days. Patient understands and agrees with plan. All questions were answered. Return precautions discussed include worsening symptoms, or any other concerns. On reevaluation patient is alert oriented x 4, no apparent distress, nontoxic-appearing, speaking full sentences. 07/15 12:58 Order name: COVID-19/FLU A+B; Complete Time: 14:45 ms3 07/15 12:58 Order name: Strep ms3 07/15 13:44 Order name: Throat Culture EDMS 07/15 12:58 Order name: Chest Pa And Lat (2 Views) XRAY; Complete Time: 14:45 ms3 Administered Medications: No medications were administered Disposition Summary: 07/15/23 14:54 Discharge Ordered Notes: Location: Home ms3 Condition: Stable ms3 Diagnosis - Pain in throat ms3 - Cough ms3 Followup: ms3 - With: Dimitri Arceo DO - When: 2 - 3 days - Reason: Recheck today's complaints Discharge Instructions: - Cough, Adult ms3 - Sore Throat, [id number] ms3 - Discharge Summary Sheet kb3 Forms: - Medication Reconciliation Form ms3 - Thank You Letter ms3 - Antibiotic Education ms3 - Prescription Opioid Use ms3 - Patient Portal Instructions ms3 - Leadership Thank You Letter ms3 - Work release form kb3 Prescriptions: - benzonatate 200 mg Oral capsule - take 1 capsule ORAL route 3 times per day as needed; 20 capsule; Refills: 0, ms3 Product Selection Permitted Signatures: Dispatcher [employer] Shannan Ayers, RN RN Steven Snell DO DO ms3 Corrections: (The following items were deleted from the chart) 11:36 11:36 PMHx: Anxiety; iw 11:36 11:36 PMHx: "black out spells"; iw
--- NOTE | 2023-07-15 14:55 | ER ---
Nurse's Notes [facility] Name: Denise Vanessa Jr Age: 23 yrs Sex: Male : 2000 Arrival Date: 07/15/2023 Time: 10:44 Bed 22 Private MD: Diagnosis: Pain in throat;Cough Presentation: 07/15 11:35 Chief complaint: Patient states: THIS MORNING SORE THROAT, COUGH x1 WK. Coronavirus iw screen: At this time, the client does not indicate any symptoms associated with coronavirus-19. Ebola Screen: No symptoms or risks identified at this time. 11:35 Method Of Arrival: Ambulatory iw 11:36 Initial Sepsis Screen: Does the patient meet any 2 criteria? No. Patient's initial iw sepsis screen is negative. Does the patient have a suspected source of infection? No. Patient's initial sepsis screen is negative. Risk Assessment: Do you want to hurt yourself or someone else? Patient reports no desire to harm self or others. Onset of symptoms is unknown. 11:36 Acuity: POONAM 4 iw Triage Assessment: 11:36 General: Appears in no apparent distress. Behavior is calm, cooperative, appropriate iw for age. Pain: Denies pain. Respiratory: Breath sounds are coarse. Historical: - PMHx: 11:36 Anxiety; Migraines; iw - PSHx: 11:36 tubes in Ears; iw - Immunization history:: Adult Immunizations up to date. - Social history:: Smoking status: Patient denies any tobacco usage or history of. Screenin:45 [facility] ED Fall Risk Assessment (Adult) History of falling in the last 3 months, kb3 including since admission No falls in past 3 months (0 pts) Confusion or Disorientation No (0 pts) Intoxicated or Sedated No (0 pts) Impaired Gait No (0 pts) Mobility Assist Device Used No (0 pt) Altered Elimination No (0 pt) Score/Fall Risk Level 0 - 2 = Low Risk Oriented to surroundings. Abuse screen: Denies threats or abuse. Denies injuries from another. Nutritional screening: No deficits noted. Tuberculosis screening: No symptoms or risk factors identified. Assessment: 12:45 General: Appears in no apparent distress. uncomfortable, ill, Behavior is calm, kb3 cooperative. 12:45 Respiratory: Reports cough that is Airway is patent Trachea midline Respiratory effort kb3 is even, unlabored, Respiratory pattern is regular. EENT: Throat is reddened Reports pain in uvula, left aspect of posterior pharynx and right aspect of posterior pharynx. Vital Signs: 11:36 BP 106 / 58; Pulse 62; Resp 16; Temp 98; Pulse Ox 98% ; Weight 81.65 kg; Height 6 ft. 4 iw in. ; 14:55 BP 110 / 68; Pulse 65; Resp 18; Pulse Ox 100% ; kb3 11:36 Body Mass Index 21.91 (81.65 kg, 193.04 cm) iw ED Course: 10:47 Patient arrived in ED. mr 11:37 Triage completed. iw 11:38 Arm band placed on. iw 12:52 Steven Maciel DO is Attending Physician. ms3 13:11 Strep Sent. bc6 13:11 COVID-19/FLU A+B Sent. bc6 13:39 Chest Pa And Lat (2 Views) XRAY In Process Unspecified. EDMS 14:54 Dimitri Arceo DO is Referral Physician. ms3 14:55 Patient has correct armband on for positive identification. Provided Education on: kb3 Discharge, OTC meds. 14:55 No provider procedures requiring assistance completed. Patient did not have IV access kb3 during this emergency room visit. Administered Medications: No medications were administered Medication: 12:45 VIS not applicable for this client. kb3 Outcome: 14:54 Discharge ordered by MD. ms3 14:55 Discharged to home ambulatory, kb3 14:55 Condition: stable 14:55 Discharge instructions given to patient, Instructed on discharge instructions, follow up and referral plans. medication usage, Demonstrated understanding of instructions, follow-up care, medications, Prescriptions given X 1, 15:05 Patient left the ED. kb3 Signatures: Dispatcher [employer] EDMS VincentCecilia, Reg Reg mr Shannan Dumont, RN RN iw Steven Maciel DO DO ms3 Sharri Augustine, HINA RN kb3 Myrna Garcia bc6 Corrections: (The following items were deleted from the chart) 11:36 11:36 PMHx: Anxiety; iw iw 11:36 11:36 PMHx: "black out spells"; iw iw
[2023-07-15 16:00] VITALS: BP 110/68; TEMP 98; O2SAT 100
== END ==
LOC: ER 10:44
DX: R05.9 Cough, unspecified (principal); R07.0 Pain in throat; F41.9 Anxiety disorder, unspecified; Z11.52 Encounter for screening for COVID-19
CPT/HCPCS: 0240U; 71046; 87070; 87081; 99283

== ENCOUNTER → 2023-08-07 | Emergency (ER) | payer SELFPAY ==
[~2023-08-07] MED LIST: FAMOTIDINE 20 MG/2 ML VIAL IV ONE; NA CHLORIDE 0.9% 1,000 ML ONE; ONDANSETRON 4 MG/2 ML VIAL ONE
[2023-08-07 07:52] LABS: Absolute Lymphocytes (CBC) 1.1 K/uL (0.7-4.9); MCV 88.3 fL (80-100); MPV 7.4 fL (7.6-11.3); Platelets 293 thou/uL (152-406); RBC Red Blood Cell Count 4.88 M/uL (4.33-5.43)
[2023-08-07 08:04] LABS: SARS-CoV-2 Antigen Rapid Res Negative (Negative)
[2023-08-07 08:13] LABS: Albumin 4.2 g/dL (3.4-5.0); Potassium 3.8 mEq/L (3.5-5.1); Protein, Total 7.6 g/dL (6.4-8.2)
--- NOTE | 2023-08-07 08:45 | RAD REPORT ---
EXAM DESCRIPTION: CTAbdomen Pelvis W Contrast - 08/07/2023 8:32 am CLINICAL HISTORY: ABD PAIN COMPARISON: Abdomen Pelvis W Contrast dated 06/06/2022; Abdomen Exam Limited dated 06/06/2022 TECHNIQUE: CT of the abdomen and pelvis was performed with IV contrast. All CT scans are performed using dose optimization technique as appropriate and may include automated exposure control or mA/KV adjustment according to patient size. FINDINGS: Lower chest: No acute abnormality. Liver: Similar periportal edema. 10 mm low-density lesion in the peripheral aspect of the right hepat ic lobe not definitely identified on the prior CT. Biliary: No biliary ductal dilatation. Stomach: No significant focal abnormality. Duodenum: No significant focal abnormality. Pancreas: No significant abnormality. Spleen: No significant abnormality. Adrenal: No suspicious lesions. Kidney/ureter: No hydronephrosis. No renal calculi. Retroperitoneum: No retroperitoneal adenopathy. Vascular: No aneurysm. Bowel: No significant focal abnormality. Normal appendix. Peritoneum: Small volume of pelvic free fluid which is abnormal but nonspecific. Bladder: Grossly unremarkable. Reproductive: 14 mm cystic structure within the midline prostate may be a prostatic utricle cyst. Bones: No acute fracture. Other: n/a IMPRESSION: No acute intra-abdominal or pelvic finding. Abnormal but nonspecific pelvic free fluid. Periportal edema, also nonspecific but was seen previously. Question low-density lesion the periphera l aspect of the right hepatic lobe that may have been present on retrospect on the prior exam. Noneme rgent MRI could be considered to confirm. Given the patient's age, a benign etiology is overwhelmingl y most likely. 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
--- NOTE | 2023-08-07 09:10 | EDPHYS ---
Physician Documentation [facility] Name: Denise Vanessa Jr Age: 23 yrs Sex: Male : 2000 Arrival Date: 08/07/2023 Time: 07:14 Bed 2 Private MD: ED Physician Aleksandar Gerber HPI: 08/07 08:09 This 23 yrs old Male presents to ER via Ambulatory with complaints of Vomiting, Body rn Aches. 08:09 The patient presents to the emergency department with nausea, vomiting, diarrhea, rn abdominal pain. Onset: The symptoms/episode began/occurred yesterday. Possible causes: unknown. The symptoms are aggravated by nothing. The symptoms are alleviated by nothing. Associated signs and symptoms: Pertinent positives: abdominal pain, diarrhea, fever, nausea, vomiting, Pertinent negatives: GI bleeding. Severity of symptoms: At their worst the symptoms were moderate in the emergency department the symptoms are unchanged. The patient has not experienced similar symptoms in the past. Historical: - Allergies: 07:30 No Known Allergies; ll1 - PMHx: 07:30 Anxiety; Migraines; ll1 - PSHx: 07:30 tubes in Ears; ll1 - Immunization history:: Adult Immunizations up to date. - Social history:: Smoking status: Reported history of juuling and/or vaping. - Family history:: not pertinent. - Hospitalizations: : No recent hospitalization is reported. ROS: 08:09 Constitutional: Positive for fever and chills ENT: Positive for nasal congestion Neck: rn Negative for injury, pain, and swelling, Cardiovascular: Negative for chest pain, palpitations, and edema, Respiratory: Positive for cough, negative for shortness of breath Abdomen/GI: Positive for abdominal pain/nausea/vomiting/diarrhea MS/Extremity: Negative for injury and deformity, Skin: Negative for injury, rash, and discoloration, Neuro: Positive for generalized weakness Exam: 08:09 Constitutional: This is a well developed, well nourished patient who is awake, alert, rn and in no acute distress. Ambulatory to room without difficulty or assistance Head/Face: Normocephalic, atraumatic. ENT: Dry mucous membranes. Cardiovascular: Regular rate and rhythm. No pulse deficits. Respiratory: No increased work of breathing, no retractions or nasal flaring. Abdomen/GI: Soft, mild mid abdominal tenderness without guarding MS/ Extremity: Pulses equal, no cyanosis. Neurovascular intact. Full, normal range of motion. Equal circumference. Neuro: Awake and alert, GCS 15 Vital Signs: 07:30 BP 116 / 70; Pulse 69; Resp 16; Temp 98.1; Pulse Ox 98% ; Weight 68.04 kg; Height 6 ft. ll1 3 in. ; Pain 8/10; 07:30 Body Mass Index 18.75 (68.04 kg, 190.5 cm) ll1 07:30 Pain Scale: Adult ll1 MDM: 07:17 Patient medically screened. rn 09:07 Differential diagnosis: Nonspecific abd pain, gastritis, pancreatitis, appendicitis, rn diverticulitis, viral gastroenteritis, gastroenteritis, Flu, COVID, viral illness. Data reviewed: vital signs, nurses notes, lab test result(s), radiologic studies, CT scan, and as a result, I will discharge patient. Counseling: I had a detailed discussion with the patient and/or guardian regarding the historical points, exam findings, and any diagnostic results supporting the discharge/admit diagnosis, lab results, radiology results, the need for outpatient follow up, to return to the emergency department if symptoms worsen or persist or if there are any questions or concerns that arise at home. Response to treatment: the patient's symptoms have markedly improved after treatment, and as a result, I will discharge patient. Special discussion: I discussed with the patient/guardian in detail that at this point there is no indication for admission to the hospital. It is understood, however, that if the symptoms persist or worsen the patient needs to return immediately for re-evaluation. 09:10 Special discussion: I discussed with the patient the need to follow-up with the rn PCP/specialist for the noted incidental finding on X-ray/CT scanning. 08/07 07:17 Order name: SARS RAPID; Complete Time: 08:47 rn 08/07 07:17 Order name: Flu; Complete Time: 08:47 rn 08/07 07:35 Order name: CBC with Diff; Complete Time: 08:47 rn 08/07 07:35 Order name: CMP; Complete Time: 08:47 rn 08/07 07:35 Order name: Lipase; Complete Time: 08:47 rn 08/07 07:35 Order name: CT Abd/Pelvis - IV Contrast Only; Complete Time: 08:47 rn 08/07 07:35 Order name: IV Saline Lock; Complete Time: 07:39 rn 08/07 07:35 Order name: Labs collected and sent; Complete Time: 07:39 rn Administered Medications: 07:49 Drug: NS 0.9% IV 1000 ml IV at 1 bolus Per protocol; 1000 mL bolus Route: IV; Rate: 1 kc6 bolus; Site: right forearm; 08:49 Follow up: Response: No adverse reaction; IV Status: Completed infusion kc6 07:49 Drug: Famotidine IVP 20 mg IVP once; dilute with 10 mL 0.9% NaCl; give over 2 minutes kc6 Route: IVP; Site: right forearm; 08:49 Follow up: Response: No adverse reaction kc6 07:49 Drug: Ondansetron IVP 4 mg IVP once; over 2 minutes Route: IVP; Site: right forearm; kc6 08:49 Follow up: Response: No adverse reaction; Nausea is decreased; Vomiting decreased kc6 Disposition Summary: 08/07/23 09:10 Discharge Ordered Notes: Location: Home rn Problem: new rn Symptoms: have improved rn Condition: Stable rn Diagnosis - Vomiting, unspecified rn - Diarrhea, unspecified rn Followup: rn - With: Private Physician - When: As needed - Reason: Recheck today's complaints, Re-evaluation by your physician Discharge Instructions: - Discharge Summary Sheet rn - Abdominal Pain, Adult rn - Diarrhea, Adult rn - Nausea and Vomiting, Adult rn Forms: - Work release form dana - Medication Reconciliation Form rn - Thank You Letter rn - Antibiotic yarn weight and strength tester - Prescription Opioid Use rn - Patient Portal Instructions rn - Leadership Thank You Letter rn Prescriptions: - ondansetron 4 mg Oral Tablet,disintegrating - take 1 tablet ORAL route every 8 hours As needed; 12 tablet; Refills: 0, rn Product Selection Permitted Signatures: Dispatcher [employer] Aleksandar Lance MD MD rn Lewis, Lynsay RN RN ll1 Linh Christopher RN RN kc6
--- NOTE | 2023-08-07 09:10 | ER ---
Nurse's Notes [facility] Name: Denise Vanessa Jr Age: 23 yrs Sex: Male : 2000 Arrival Date: 08/07/2023 Time: 07:14 Bed 2 Private MD: Diagnosis: Vomiting, unspecified;Diarrhea, unspecified Presentation: 08/07 07:30 Chief complaint: Patient states: N/V/D, body aches, abdominal cramping, chills, fever, ll1 not feeling well since 8 PM last night. Coronavirus screen: Client denies travel out of the [place] in the last 14 days. diarrhea, fatigue, fever, muscle pain, nausea, vomiting. Client presents with at least one sign or symptom that may indicate coronavirus-19. Standard/surgical mask placed on the client. Ebola Screen: Patient denies travel to an Ebola-affected area in the 21 days before illness onset. Initial Sepsis Screen: Does the patient meet any 2 criteria? No. Patient's initial sepsis screen is negative. Does the patient have a suspected source of infection? Yes: Acute abdominal pain. Risk Assessment: Do you want to hurt yourself or someone else? Patient reports no desire to harm self or others. Onset of symptoms was August 06, 2023. 07:30 Method Of Arrival: Ambulatory ll1 07:30 Acuity: POONAM 3 ll1 Triage Assessment: 07:33 General: Appears uncomfortable, ill, Behavior is calm, cooperative, appropriate for ll1 age. General: Reports chills for feeling ill for fatigue for body aches. Pain: Complains of pain in body Pain currently is 8 out of 10 on a pain scale. Quality of pain is described as aching. GI: Reports cramping, diarrhea, nausea, vomiting. Historical: - Allergies: 07:30 No Known Allergies; ll1 - PMHx: 07:30 Anxiety; Migraines; ll1 - PSHx: 07:30 tubes in Ears; ll1 - Immunization history:: Adult Immunizations up to date. - Social history:: Smoking status: Reported history of juuling and/or vaping. - Family history:: not pertinent. - Hospitalizations: : No recent hospitalization is reported. Screenin:50 [facility] ED Fall Risk Assessment (Adult) History of falling in the last 3 months, kc6 including since admission No falls in past 3 months (0 pts) Confusion or Disorientation No (0 pts) Intoxicated or Sedated No (0 pts) Impaired Gait No (0 pts) Mobility Assist Device Used No (0 pt) Altered Elimination No (0 pt) Score/Fall Risk Level 0 - 2 = Low Risk. Abuse screen: Denies threats or abuse. Denies injuries from another. Nutritional screening: No deficits noted. Tuberculosis screening: No symptoms or risk factors identified. Assessment: 07:50 General: Appears in no apparent distress. comfortable, well groomed, well developed, kc6 Behavior is calm, cooperative, appropriate for age, Reports chills for feeling ill for. Pain: Complains of pain in abdomen Pain does not radiate. Quality of pain is described as crampy, Pain began 1 day ago. Is continuous, Noted to be grimacing, Also complains of no other associated symptoms. Neuro: Level of Consciousness is awake, alert, obeys commands, Oriented to person, place, time, situation, Appropriate for age. Cardiovascular: Capillary refill < 3 seconds. Respiratory: Airway is patent Trachea midline Respiratory effort is even, unlabored, Respiratory pattern is regular, symmetrical. GI: Abdomen is flat, non-distended, Bowel sounds present X 4 quads. Abd is soft X 4 quads Abdomen is tender to palpation Reports diarrhea, nausea, vomiting. : No signs and/or symptoms were reported regarding the genitourinary system. EENT: No signs and/or symptoms were reported regarding the EENT system. Derm: No signs and/or symptoms reported regarding the dermatologic system. Skin is intact, is healthy with good turgor, Skin is pink, warm \T\ dry. Musculoskeletal: No signs and/or symptoms reported regarding the musculoskeletal system. Circulation, motion, and sensation intact. Capillary refill < 3 seconds, Range of motion: intact in all extremities. 08:49 Reassessment: Patient appears in no apparent distress at this time. No changes from kc6 previously documented assessment. Patient and/or family updated on plan of care and expected duration. Pain level reassessed. Patient is alert, oriented x 3, equal unlabored respirations, skin warm/dry/pink. Vital Signs: 07:30 BP 116 / 70; Pulse 69; Resp 16; Temp 98.1; Pulse Ox 98% ; Weight 68.04 kg; Height 6 ft. ll1 3 in. ; Pain 8/10; 07:30 Body Mass Index 18.75 (68.04 kg, 190.5 cm) ll1 07:30 Pain Scale: Adult ll1 ED Course: 07:16 Patient arrived in ED. rg4 07:17 Aleksandar Gerber MD is Attending Physician. rn 07:30 Arm band placed on Patient placed in an exam room, on a stretcher. ll1 07:33 Triage completed. ll1 07:39 Linh Christopher RN is Primary Nurse. kc6 07:50 Patient has correct armband on for positive identification. Bed in low position. Call kc6 light in reach. Side rails up X 1. Client placed on continuous cardiac and pulse oximetry monitoring. NIBP monitoring applied. 07:50 Inserted saline lock: 20 gauge in right forearm, using aseptic technique. Blood kc6 collected. Patient maintains SpO2 saturation greater than 95% on room air. 08:33 CT Abd/Pelvis - IV Contrast Only In Process Unspecified. EDMS 09:21 No provider procedures requiring assistance completed. IV discontinued, intact, ld1 bleeding controlled, No redness/swelling at site. Administered Medications: 07:49 Drug: NS 0.9% IV 1000 ml IV at 1 bolus Per protocol; 1000 mL bolus Route: IV; Rate: 1 kc6 bolus; Site: right forearm; 08:49 Follow up: Response: No adverse reaction; IV Status: Completed infusion kc6 07:49 Drug: Famotidine IVP 20 mg IVP once; dilute with 10 mL 0.9% NaCl; give over 2 minutes kc6 Route: IVP; Site: right forearm; 08:49 Follow up: Response: No adverse reaction kc6 07:49 Drug: Ondansetron IVP 4 mg IVP once; over 2 minutes Route: IVP; Site: right forearm; kc6 08:49 Follow up: Response: No adverse reaction; Nausea is decreased; Vomiting decreased kc6 Medication: 09:21 VIS not applicable for this client. ld1 Outcome: 09:10 Discharge ordered by . rn 09:21 Discharged to home ambulatory, ld1 09:21 Condition: stable 09:21 Discharge instructions given to patient, Instructed on discharge instructions, follow up and referral plans. medication usage, Demonstrated understanding of instructions, follow-up care, medications, 09:21 Patient left the ED. ld1 Signatures: Dispatcher [employer] BRANDEEMS Aleksandar Gerber MD MD rn Garcia, Rubi rg4 Rashi Zhou RN RN ll1 Kathryn Maciel RN RN ld1 Linh Christopher RN RN kc6
[2023-08-07 14:25] VITALS: BP 116/70; TEMP 98.1; O2SAT 98
== END ==
LOC: ER 07:14
DX: R11.2 Nausea with vomiting, unspecified (principal); R19.7 Diarrhea, unspecified; Z11.52 Encounter for screening for COVID-19
CPT/HCPCS: 36415; 74177; 80053; 83690; 85025; 87804; 87811; J2405; J7030; Q9967

== ENCOUNTER → 2023-09-19 | Emergency (ER) | payer SELFPAY ==
[~2023-09-19] MED LIST changes: -FAMOTIDINE 20 MG/2 ML VIAL IV ONE; +KETOROLAC 30 MG/ML INJ ONE; -NA CHLORIDE 0.9% 1,000 ML ONE; -ONDANSETRON 4 MG/2 ML VIAL ONE
--- NOTE | 2023-09-19 08:12 | EDPHYS ---
Physician Documentation [facility] Name: Denise Vanessa Jr Age: 23 yrs Sex: Male : 2000 Arrival Date: 09/19/2023 Time: 07:49 Bed 5 Private MD: ED Physician Twan Pascual HPI: 09/18 08:09 This 23 yrs old Male presents to ER via Ambulatory with complaints of Back Pain. ec2 08:09 Patient arrives today for upper back pain. 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 States that yesterday he felt fine throughout the day, went to bed and woke with morning and felt generally stiff. Patient reports no red flag symptoms. Patient has taken Tylenol with minimal alleviation in symptoms.. Historical: - Allergies: 07:54 No Known Allergies; ll1 - PMHx: 07:54 Anxiety; Migraines; ll1 - PSHx: 07:54 tubes in Ears; ll1 - Immunization history:: Adult Immunizations up to date. - Social history:: Smoking status: Reported history of juuling and/or vaping. ROS: 08:09 Constitutional: as per hpi ec2 Exam: 08:09 Constitutional: GEN: NAD Head: atraumatic Eyes: EOMI Ears: External ears are ec2 normal. CV: regular rate LUNGS: no respiratory distress ABD: non-distended SKIN: no evidence of rashes MSK: no evidence of trauma, no C/C/L-spine TTP or deformities or crepitus appreciated. Diffuse upper back TTP without deformities or ecchymosis appreciated. NEURO: moves all extremities equally Vital Signs: 07:59 BP 113 / 63; Pulse 55; Resp 16; Temp 97.6; Pulse Ox 99% on R/A; Height 6 ft. 4 in. ; ll1 Pain 6/10; 08:45 BP 114 / 78; Pulse 58; Resp 18; Temp 98; Pulse Ox 98% on R/A; ph 07:59 Pain Scale: Adult ll1 MDM: 08:01 Patient medically screened. ec2 08:09 Data reviewed: vital signs. ED course: Patient arrives today for evaluation of upper ec2 back pain. Examination remarkable for MSK findings as noted above. Will give the patient Toradol, prescribed Robaxin and have him follow-up with primary care doctor. Given lack of red flag symptoms, doubt spinal cord pathology. Accordingly will defer advanced imaging such as MRI. Suspect muscular strain causing his main issue.. Administered Medications: 08:35 Drug: Ketorolac IM 30 mg IM once Route: IM; Site: right deltoid; kc6 08:44 Follow up: Response: No adverse reaction kc6 Disposition Summary: 09/19/23 08:11 Discharge Ordered Notes: Location: Home ec2 Condition: Stable ec2 Diagnosis - Strain of muscle and tendon of back wall of thorax ec2 Followup: ec2 - With: Private Physician - When: - Reason: Re-evaluation by your physician Discharge Instructions: - Discharge Summary Sheet ec2 - Acute Back Pain, Adult ec2 Forms: - Work release form ll1 - Medication Reconciliation Form ec2 - Thank You Letter ec2 - Antibiotic Education ec2 - Prescription Opioid Use ec2 - Patient Portal Instructions ec2 - Leadership Thank You Letter ec2 Prescriptions: - methocarbamol 500 mg Oral tablet - take 2 tablets ORAL route 4 times per day; 60 tablet; Refills: 0, Product ec2 Selection Permitted Signatures: Rashi Zhou RN RN ll1 Linh Christopher RN RN kc6 Twan Pascual MD MD ec2
--- NOTE | 2023-09-19 08:12 | ER ---
Nurse's Notes [facility] Name: Denise Vanessa Jr Age: 23 yrs Sex: Male : 2000 Arrival Date: 09/19/2023 Time: 07:49 Bed 5 Private MD: Diagnosis: Strain of muscle and tendon of back wall of thorax Presentation: 09/18 07:59 Chief complaint: Patient states: Carrying a couch yesterday and back got flexed while ll1 moving. Afterwards his neck started hurting. Radiating down the spine now. Gait steady. Coronavirus screen: Client denies travel out of the [place] in the last 14 days. At this time, the client does not indicate any symptoms associated with coronavirus-19. Ebola Screen: Patient denies travel to an Ebola-affected area in the 21 days before illness onset. Initial Sepsis Screen: Does the patient meet any 2 criteria? No. Patient's initial sepsis screen is negative. Does the patient have a suspected source of infection? No. Patient's initial sepsis screen is negative. Risk Assessment: Do you want to hurt yourself or someone else? Patient reports no desire to harm self or others. Onset of symptoms was September 18, 2023. 07:59 Method Of Arrival: Ambulatory ll1 07:59 Acuity: POONAM 4 ll1 Triage Assessment: 08:01 General: Appears in no apparent distress. Behavior is calm, cooperative, appropriate ll1 for age. Pain: Complains of pain in neck Pain radiates to back Pain currently is 6 out of 10 on a pain scale. Quality of pain is described as aching. Musculoskeletal: Circulation, motion, and sensation intact. Capillary refill < 3 seconds, Reports pain in neck/spine. Injury Description: Bruise. Historical: - Allergies: 07:54 No Known Allergies; ll1 - PMHx: 07:54 Anxiety; Migraines; ll1 - PSHx: 07:54 tubes in Ears; ll1 - Immunization history:: Adult Immunizations up to date. - Social history:: Smoking status: Reported history of juuling and/or vaping. Screenin:35 [facility] ED Fall Risk Assessment (Adult) History of falling in the last 3 months, kc6 including since admission No falls in past 3 months (0 pts) Confusion or Disorientation No (0 pts) Intoxicated or Sedated No (0 pts) Impaired Gait No (0 pts) Mobility Assist Device Used No (0 pt) Altered Elimination No (0 pt) Score/Fall Risk Level 0 - 2 = Low Risk. Abuse screen: Denies threats or abuse. Denies injuries from another. Nutritional screening: No deficits noted. Tuberculosis screening: No symptoms or risk factors identified. Assessment: 08:36 General: Appears in no apparent distress. comfortable, well groomed, well developed, kc6 Behavior is calm, cooperative, appropriate for age. Pain: Complains of pain in posterior cervical area. Neuro: Level of Consciousness is awake, alert, obeys commands, Oriented to person, place, time, situation, Appropriate for age. Cardiovascular: Capillary refill < 3 seconds. Respiratory: Airway is patent Trachea midline Respiratory effort is even, unlabored, Respiratory pattern is regular, symmetrical. GI: No signs and/or symptoms were reported involving the gastrointestinal system. : No signs and/or symptoms were reported regarding the genitourinary system. EENT: No signs and/or symptoms were reported regarding the EENT system. Derm: No signs and/or symptoms reported regarding the dermatologic system. Skin is intact, is healthy with good turgor, Skin is pink, warm \T\ dry. Musculoskeletal: No signs and/or symptoms reported regarding the musculoskeletal system. Circulation, motion, and sensation intact. Capillary refill < 3 seconds, Range of motion: intact in all extremities. Vital Signs: 07:59 BP 113 / 63; Pulse 55; Resp 16; Temp 97.6; Pulse Ox 99% on R/A; Height 6 ft. 4 in. ; ll1 Pain 6/10; 08:45 BP 114 / 78; Pulse 58; Resp 18; Temp 98; Pulse Ox 98% on R/A; ph 07:59 Pain Scale: Adult ll1 ED Course: 07:54 Patient arrived in ED. mr 07:54 Arm band placed on Patient placed in an exam room, on a stretcher. ll1 07:57 Twan Pascual MD is Attending Physician. ec2 08:01 Triage completed. ll1 08:30 Linh Christopher, HINA is Primary Nurse. kc6 08:35 Patient maintains SpO2 saturation greater than 95% on room air. kc6 08:36 Patient has correct armband on for positive identification. Bed in low position. Call kc6 light in reach. Side rails up X 1. Client placed on continuous cardiac and pulse oximetry monitoring. NIBP monitoring applied. 08:46 No provider procedures requiring assistance completed. ph 08:51 Provided Education on: use and side effects of muscle relaxers. ph 08:51 Patient did not have IV access during this emergency room visit. ph Administered Medications: 08:35 Drug: Ketorolac IM 30 mg IM once Route: IM; Site: right deltoid; kc6 08:44 Follow up: Response: No adverse reaction kc6 Medication: 08:51 VIS not applicable for this client. ph Outcome: 08:11 Discharge ordered by . ec2 08:51 Discharged to home ambulatory, ph 08:51 Condition: good 08:51 Discharge instructions given to patient, Instructed on discharge instructions, follow up and referral plans. medication usage, Demonstrated understanding of instructions, follow-up care, medications, Prescriptions given X 1, 08:51 Patient left the ED. ph Signatures: Cecilia Kaur, Reg Reg mr Tori Hill, RN RN ph Rashi Zhou RN RN ll1 Linh Christopher RN RN kc6 Twan Pascual MD MD ec2
[2023-09-19 09:16] VITALS: BP 114/78; TEMP 98; O2SAT 98
== END ==
LOC: ER 07:49
DX: S29.012A Strain of muscle and tendon of back wall of thorax, initial encounter (principal)
CPT/HCPCS: 96372; 99284

== ENCOUNTER 2023-12-18 10:08 | Emergency (ER) | payer SELFPAY ==
[2023-12-18] MEDS ORDERED: dexAMETHasone 10 MG/ML VIAL ONE (10:34)
--- NOTE | 2023-12-18 11:58 | EDPHYS ---
Physician Documentation [facility] Name: Denise Vanessa Jr Age: 23 yrs Sex: Male : 2000 Arrival Date: 12/18/2023 Time: 10:08 Bed 12 Private MD: ED Physician Steven Maciel HPI: 12/17 10:33 This 23 yrs old Male presents to ER via Ambulatory with complaints of Sore Throat - mt3 Cant Talk. 10:33 23-year-old male with past medical history of migraines and anxiety presents to [place] [facility] [place] for sore throat. Patient states his symptoms feel similar to when he has had strep throat in the past. Patient states his discomfort is a 6/10. Patient endorses congestion, cough, chills, nausea. Patient denies vomiting or fever.. Historical: - Allergies: 10:22 No Known Allergies; mb9 - Home Meds: 10:22 None [Active]; mb9 - PMHx: 10:22 Migraines; Anxiety; mb9 - PSHx: 10:22 tubes in Ears; mb9 - Immunization history:: Adult Immunizations up to date. - Infectious Disease History:: Denies. - Social history:: Smoking status: Reported history of juuling and/or vaping. ROS: 10:33 Constitutional: Negative for fever, and chills. ms3 10:33 MS/Extremity: Negative for injury and deformity, Skin: Negative for injury, rash, and discoloration, 10:33 ENT: Positive for sore throat, Exam: 10:33 Constitutional: This is a well developed, well nourished patient who is awake, alert, ms3 and in no acute distress. Cardiovascular: Regular rate and rhythm with a normal S1 and S2. No gallops, murmurs, or rubs. Normal PMI, no JVD. No pulse deficits. Respiratory: Lungs have equal breath sounds bilaterally, clear to auscultation and percussion. No rales, rhonchi or wheezes noted. No increased work of breathing, no retractions or nasal flaring. Abdomen/GI: Soft, non-tender, with normal bowel sounds. No distension or tympany. No guarding or rebound. No evidence of tenderness throughout. 10:33 ENT: Posterior pharynx: erythema, that is moderate, exudate, that is mild, Vital Signs: 10:21 BP 111 / 66; Pulse 75; Resp 18; Temp 98; Pulse Ox 100% on R/A; Weight 65.77 kg (M); mb9 Height 6 ft. 4 in. ; 12:03 BP 112 / 68; Pulse 78; Resp 18; Temp 98.2; Pulse Ox 100% on R/A; mb9 10:21 Body Mass Index 17.65 (65.77 kg, 193.04 cm) mb9 MDM: 10:33 Patient medically screened. ms3 10:33 Differential diagnosis: pharyngitis, uvulitis, viral syndrome. ms3 11:58 Data reviewed: vital signs, nurses notes, and as a result, I will discharge patient. I ms3 considered the following discharge prescriptions or medication management in the emergency department Medications were administered in the Emergency Department. See MAR. Counseling: I had a detailed discussion with the patient and/or guardian regarding the historical points, exam findings, and any diagnostic results supporting the discharge/admit diagnosis, lab results, radiology results, the need for outpatient follow up, to return to the emergency department if symptoms worsen or persist or if there are any questions or concerns that arise at home. 12:04 ED course: On reevaluation patient is alert and oriented x 4, no apparent distress, ms3 nontoxic-appearing, speaking full sentences, tolerating p.o. Patient to follow-up with primary care physician in 2 to 3 days. Patient understands and agrees with plan. All questions were answered. Return precautions discussed include worsening symptoms, or any other concerns. 12/17 10:33 Order name: Strep ms3 12/17 11:17 Order name: Throat Culture EDMS Administered Medications: 10:40 Drug: Dexamethasone IM 10 mg IM once Route: IM; Site: right deltoid; mb9 10:54 Follow up: Response: No adverse reaction mb9 Disposition Summary: 12/18/23 11:58 Discharge Ordered Notes: Location: Home ms3 Condition: Stable ms3 Diagnosis - Pain in throat ms3 Followup: ms3 - With: Dimitri Arceo, - When: 2 - 3 days - Reason: Recheck today's complaints Discharge Instructions: - Sore Throat, [id number] ms3 - Discharge Summary Sheet mb9 Forms: - Medication Reconciliation Form ms3 - Antibiotic Education ms3 - Prescription Opioid Use ms3 - Patient Portal Instructions ms3 - Leadership Thank You Letter ms3 - Work release form mb9 Signatures: Dispatcher [employer] EDMS Steven Maciel DO DO ms3 Cecilia Chun, RN RN mb9 Corrections: (The following items were deleted from the chart) 10:33 10:33 Group A Streptococcus Rapid [id number] ordered. EDMS EDMS 12:05 11:58 Independent interpretation of the following test(s) in the Emergency Department ms3 EKG: See my EKG interpretation above monitoring engineer: rate is 111 beats/min, Rhythm is sinus tachycardia, with no ectopy, Interpretation: normal rhythm, tachycardia, ms3
--- NOTE | 2023-12-18 11:58 | ER ---
Nurse's Notes [facility] Name: Denise Vanessa Jr Age: 23 yrs Sex: Male : 2000 Arrival Date: 12/18/2023 Time: 10:08 Bed 12 Private MD: Diagnosis: Pain in throat Presentation: 12/17 10:21 Chief complaint: Patient states: "I've had a sore throat for a couple days and it got mb9 worse today.". Coronavirus screen: Vaccine status: Patient reports receiving the 2nd dose of the covid vaccine. Ebola Screen: No symptoms or risks identified at this time. Initial Sepsis Screen: Does the patient meet any 2 criteria? No. Patient's initial sepsis screen is negative. Does the patient have a suspected source of infection? No. Patient's initial sepsis screen is negative. Risk Assessment: Do you want to hurt yourself or someone else? Patient reports no desire to harm self or others. Onset of symptoms was December 18, 2023. 10:21 Method Of Arrival: Ambulatory mb9 10:21 Acuity: POONAM 4 mb9 Triage Assessment: 10:22 General: Appears in no apparent distress. Behavior is calm, cooperative. Pain: mb9 Complains of pain in throat. EENT: Throat is reddened. Neuro: Metzger Agitation-Sedation Scale (RASS): 0 - Alert and Calm Level of Consciousness is awake, alert, obeys commands, Oriented to person, place, time, situation, Appropriate for age. Cardiovascular: Patient's skin is warm and dry. Respiratory: Airway is patent Respiratory effort is even, unlabored, Respiratory pattern is regular, symmetrical. GI: No signs and/or symptoms were reported involving the gastrointestinal system. : No signs and/or symptoms were reported regarding the genitourinary system. Derm: Skin is pink, warm \\T\\ dry. Musculoskeletal: Range of motion: intact in all extremities. Historical: - Allergies: 10:22 No Known Allergies; mb9 - Home Meds: 10:22 None [Active]; mb9 - PMHx: 10:22 Migraines; Anxiety; mb9 - PSHx: 10:22 tubes in Ears; mb9 - Immunization history:: Adult Immunizations up to date. - Infectious Disease History:: Denies. - Social history:: Smoking status: Reported history of juuling and/or vaping. Screenin:23 [facility] ED Fall Risk Assessment (Adult) History of falling in the last 3 months, mb9 including since admission No falls in past 3 months (0 pts) Confusion or Disorientation No (0 pts) Intoxicated or Sedated No (0 pts) Impaired Gait No (0 pts) Mobility Assist Device Used No (0 pt) Altered Elimination No (0 pt) Score/Fall Risk Level 0 - 2 = Low Risk Oriented to surroundings, Maintained a safe environment, Educated pt \\T\\ family on fall prevention, incl call for assistance when getting out of bed. Abuse screen: Denies threats or abuse. Nutritional screening: No deficits noted. Tuberculosis screening: No symptoms or risk factors identified. Assessment: 10:26 Reassessment: see triage assessment. mb9 11:33 Reassessment: Patient appears in no apparent distress at this time. No changes from mb9 previously documented assessment. Patient and/or family updated on plan of care and expected duration. Pain level reassessed. Patient is alert, oriented x 3, equal unlabored respirations, skin warm/dry/pink. Vital Signs: 10:21 BP 111 / 66; Pulse 75; Resp 18; Temp 98; Pulse Ox 100% on R/A; Weight 65.77 kg (M); mb9 Height 6 ft. 4 in. ; 12:03 BP 112 / 68; Pulse 78; Resp 18; Temp 98.2; Pulse Ox 100% on R/A; mb9 10:21 Body Mass Index 17.65 (65.77 kg, 193.04 cm) mb9 ED Course: 10:18 Patient arrived in ED. mg5 10:18 Steven Maciel DO is Attending Physician. ms3 10:21 Cecilia Chun, HINA is Primary Nurse. mb9 10:21 Arm band placed on. mb9 10:22 Triage completed. mb9 10:23 Patient has correct armband on for positive identification. mb9 10:23 No provider procedures requiring assistance completed. Patient did not have IV access mb9 during this emergency room visit. 10:26 Provided Education on: press call light if needing anything. mb9 10:40 Strep Sent. mb9 10:40 Strep swab sent to lab. mb9 11:57 Dimitri Arceo DO is Referral Physician. ms3 Administered Medications: 10:40 Drug: Dexamethasone IM 10 mg IM once Route: IM; Site: right deltoid; mb9 10:54 Follow up: Response: No adverse reaction mb9 Medication: 10:23 VIS not applicable for this client. mb9 Outcome: 11:58 Discharge ordered by ms3 12:03 Discharged to home ambulatory, mb9 12:03 Condition: stable 12:03 Discharge instructions given to patient, Instructed on discharge instructions, follow up and referral plans. Demonstrated understanding of instructions, follow-up care, 12:04 Patient left the ED. mb9 Signatures: Steven Maciel DO DO ms3 Cecilia Chun RN RN mb9 Mona Lieberman mg5 Corrections: (The following items were deleted from the chart) 10:25 10:21 BP 111 / 66; Pulse 75bpm; Resp 18bpm; Pulse Ox 100% RA; Temp 98F; 83.91 kg; mb9 Height 6 ft. 4 in.; BMI: 22.5; mb9
[2023-12-18 12:22] VITALS: BP 112/68; TEMP 98.2; O2SAT 100
== END 2023-12-18 12:04 | disposition home or self-care (01) ==
LOC: ER 10:08
DX: R07.0 Pain in throat (principal); F41.9 Anxiety disorder, unspecified; G43.909 Migraine, unspecified, not intractable, without status migrainosus
CPT/HCPCS: 87070; 87081; 96372; 99284; J1100

== ENCOUNTER 2024-03-13 07:12 | Emergency (ER) | payer SELFPAY ==
[2024-03-13] MEDS ORDERED: IBUPROFEN 200 MG TAB PO ONE (07:42)
--- NOTE | 2024-03-13 08:22 | RAD REPORT ---
EXAM DESCRIPTION: RAD - Chest Pa And Lat (2 Views) - 03/13/2024 8:06 am CLINICAL HISTORY: COUGH COMPARISON: Chest Pa And Lat (2 Views) dated 11/17/2021; Chest Single View dated 03/15/2020; CHEST PA A ND LAT 2 VIEW dated 06/13/2011Chest Pa And Lat (2 Views) dated 07/15/2023; Chest Single View dated 04/24; Chest Single View dated 08/18/2019 FINDINGS: Lines: None. Lungs: No evidence of edema or pneumonia. Pleural: No significant pleural effusions or pneumothorax. Cardiac: The heart size is within normal limits. Mediastinum: Within normal limits. Bones: No acute fractures. Other: None IMPRESSION: No acute cardiopulmonary disease.
[2024-03-13 08:31] LABS: SARS-CoV-2 Antigen CONTROL BLUE LINE VIS/BG OK; SARS-CoV-2 Antigen Rapid Res Negative (Negative)
--- NOTE | 2024-03-13 08:59 | ER ---
Nurse's Notes [facility] Name: Denise Vanessa Jr Age: 24 yrs Sex: Male : 2000 Arrival Date: 03/13/2024 Time: 07:12 Bed 13 Private MD: Diagnosis: Fever, unspecified;Acute upper respiratory infection, unspecified Presentation: 03/13 07:35 Chief complaint: Headache, body aches, fever, chills x 3 days. Coronavirus screen: hb Client presents with at least one sign or symptom that may indicate coronavirus-19. Provider contacted for isolation considerations. Ebola Screen: No symptoms or risks identified at this time. Initial Sepsis Screen: Does the patient meet any 2 criteria? No. Patient's initial sepsis screen is negative. Does the patient have a suspected source of infection? No. Patient's initial sepsis screen is negative. Risk Assessment: Do you want to hurt yourself or someone else? Patient reports no desire to harm self or others. Onset of symptoms was March 11, 2024. 07:35 Method Of Arrival: Ambulatory 07:35 Acuity: POONAM 4 hb Triage Assessment: 07:38 General: Appears in no apparent distress. Behavior is calm, cooperative. Pain: Pain hb currently is 6 out of 10 on a pain scale. Neuro: Level of Consciousness is awake, alert, obeys commands, Oriented to person, place, time, situation, Reports headache. Cardiovascular: Patient's skin is warm and dry. Respiratory: Respiratory effort is even, unlabored, Respiratory pattern is regular, symmetrical. Historical: - Allergies: 07:37 No Known Allergies; hb - Home Meds: 07:37 None [Active]; hb - PMHx: 07:37 Anxiety; Migraines; hb - PSHx: 07:37 tubes in Ears; hb - Immunization history:: Adult Immunizations up to date. - Infectious Disease History:: Denies. - Social history:: Smoking status: Reported history of juuling and/or vaping. - Family history:: not pertinent. Screenin:38 [facility] Fall Risk Assessment (Adult) History of falling in the last 3 months, hb including since admission No falls in past 3 months (0 pts) Confusion or Disorientation No (0 pts) Intoxicated or Sedated No (0 pts) Impaired Gait No (0 pts) Mobility Assist Device Used No (0 pt) Altered Elimination No (0 pt) Score/Fall Risk Level 0 - 2 = Low Risk Oriented to surroundings, Maintained a safe environment, Educated pt \T\ family on fall prevention, incl call for assistance when getting out of bed. Abuse screen: Denies threats or abuse. Denies injuries from another. Nutritional screening: No deficits noted. Tuberculosis screening: No symptoms or risk factors identified. Assessment: 07:38 General: See triage assessment. hb 08:30 Reassessment: Patient appears in no apparent distress at this time. No changes from jl7 previously documented assessment. Patient and/or family updated on plan of care and expected duration. Pain level reassessed. Patient is alert, oriented x 3, equal unlabored respirations, skin warm/dry/pink. Vital Signs: 07:35 BP 121 / 69; Pulse 64; Resp 16; Temp 98.4(O); Pulse Ox 99% on R/A; Weight 63.5 kg; hb Height 6 ft. 4 in. ; Pain 6/10; 09:21 BP 118 / 60; Pulse 68; Resp 15; Temp 97.7; Pulse Ox 100% ; jl7 07:35 Body Mass Index 17.04 (63.50 kg, 193.04 cm) hb 07:35 Pain Scale: Adult hb ED Course: 07:19 Patient arrived in ED. ra3 07:23 Ed Nix MD is Attending Physician. [facility] 07:37 Triage completed. hb 07:38 Arm band placed on. hb 07:38 Patient has correct armband on for positive identification. Provided Education on: use hb of call light . 07:38 No provider procedures requiring assistance completed. Patient did not have IV access hb during this emergency room visit. 07:44 Thi Newell, RN is Primary Nurse. hb 07:53 Strep Sent. hb 07:53 Flu Sent. hb 07:53 SARS RAPID Sent. hb 07:53 COVID swab sent to lab. Flu and/or RSV swab sent to lab. Strep swab sent to lab. hb Thermoregulation: warm blanket given to patient. 08:07 Chest Pa And Lat (2 Views) XRAY In Process Unspecified. EDMS Administered Medications: 07:53 Drug: Ibuprofen PO 600 mg PO once Route: PO; hb 09:19 Follow up: Response: No adverse reaction jl7 09:20 Not Given (Patient Refused): [id number] mg PO once jl7 Medication: 07:38 VIS not applicable for this client. Outcome: 08:58 Discharge ordered by . dana 09:21 Discharged to home ambulatory, jlRupert 09:21 Condition: stable 09:21 Discharge instructions given to patient, Instructed on discharge instructions, follow up and referral plans. medication usage, Demonstrated understanding of instructions, follow-up care, medications, Prescriptions given X 2, 09:22 Patient left the ED. jl7 Signatures: Dispatcher [employer] EDSD Ed Nix MD MD cha Baxter, Heather, RN RN Alexandrea Abdul RN RN jlHamida Lemon 3
--- NOTE | 2024-03-13 08:59 | EDPHYS ---
Physician Documentation [facility] Name: Denise Vanessa Jr Age: 24 yrs Sex: Male : 2000 Arrival Date: 03/13/2024 Time: 07:12 Bed 13 Private MD: ED Physician Ed Nix HPI: 03/13 08:30 This 24 yrs old Male presents to ER via Ambulatory with complaints of Fever. dana 08:30 The patient reports fever, that was measured at 102 degrees Fahrenheit. Onset: The dana symptoms/episode began/occurred 2 day(s) ago. Modifying factors: there are no obvious modifying factors. Associated signs and symptoms: Pertinent positives: cough, runny nose, sinus congestion. Severity of symptoms: At their worst the symptoms were mild moderate in the emergency department the symptoms are unchanged. The patient has not experienced similar symptoms in the past. Historical: - Allergies: 07:37 No Known Allergies; hb - Home Meds: 07:37 None [Active]; hb - PMHx: 07:37 Anxiety; Migraines; hb - PSHx: 07:37 tubes in Ears; hb - Immunization history:: Adult Immunizations up to date. - Infectious Disease History:: Denies. - Social history:: Smoking status: Reported history of juuling and/or vaping. - Family history:: not pertinent. ROS: 08:30 Eyes: Negative for injury, pain, redness, and discharge, ENT: Negative for injury, dana pain, and discharge, Neck: Negative for injury, pain, and swelling, Cardiovascular: Negative for chest pain, palpitations, and edema, Abdomen/GI: Negative for abdominal pain, nausea, vomiting, diarrhea, and constipation, Back: Negative for injury and pain, : Negative for injury, bleeding, discharge, and swelling, MS/Extremity: Negative for injury and deformity, Skin: Negative for injury, rash, and discoloration, Neuro: Negative for headache, weakness, numbness, tingling, and seizure, Psych: Negative for depression, anxiety, suicide ideation, homicidal ideation, and hallucinations, Allergy/Immunology: Negative for hives, rash, and allergies, Endocrine: Negative for neck swelling, polydipsia, polyuria, polyphagia, and marked weight changes, Hematologic/Lymphatic: Negative for swollen nodes, abnormal bleeding, and unusual bruising, 08:30 Constitutional: Positive for body aches, fever, 08:30 Respiratory: Positive for cough, Exam: 08:30 Head/Face: Normocephalic, atraumatic. Eyes: Pupils equal round and reactive to light, dana extra-ocular motions intact. Lids and lashes normal. Conjunctiva and sclera are non-icteric and not injected. Cornea within normal limits. Periorbital areas with no swelling, redness, or edema. ENT: Nares patent. No nasal discharge, no septal abnormalities noted. Tympanic membranes are normal and external auditory canals are clear. Oropharynx with no redness, swelling, or masses, exudates, or evidence of obstruction, uvula midline. Mucous membranes moist. Neck: Trachea midline, no thyromegaly or masses palpated, and no cervical lymphadenopathy. Supple, full range of motion without nuchal rigidity, or vertebral point tenderness. No Meningismus. Chest/axilla: Normal chest wall appearance and motion. Nontender with no deformity. No lesions are appreciated. Cardiovascular: Regular rate and rhythm with a normal S1 and S2. No gallops, murmurs, or rubs. Normal PMI, no JVD. No pulse deficits. Respiratory: Lungs have equal breath sounds bilaterally, clear to auscultation and percussion. No rales, rhonchi or wheezes noted. No increased work of breathing, no retractions or nasal flaring. Abdomen/GI: Soft, non-tender, with normal bowel sounds. No distension or tympany. No guarding or rebound. No evidence of tenderness throughout. Back: No spinal tenderness. No costovertebral tenderness. Full range of motion. Male : Normal genitalia with no discharge or lesions. Skin: Warm, dry with normal turgor. Normal color with no rashes, no lesions, and no evidence of cellulitis. MS/ Extremity: Pulses equal, no cyanosis. Neurovascular intact. Full, normal range of motion. Neuro: Awake and alert, GCS 15, oriented to person, place, time, and situation. Cranial nerves II-XII grossly intact. Motor strength 5/5 in all extremities. Sensory grossly intact. Cerebellar exam normal. Normal gait. Psych: Awake, alert, with orientation to person, place and time. Behavior, mood, and affect are within normal limits. 08:30 Cardiovascular: Rate: normal, 08:30 Respiratory: mild respiratory distress is noted, Respirations: normal, Breath sounds: are clear throughout, Vital Signs: 07:35 BP 121 / 69; Pulse 64; Resp 16; Temp 98.4(O); Pulse Ox 99% on R/A; Weight 63.5 kg; hb Height 6 ft. 4 in. ; Pain 6/10; 09:21 BP 118 / 60; Pulse 68; Resp 15; Temp 97.7; Pulse Ox 100% ; jl7 07:35 Body Mass Index 17.04 (63.50 kg, 193.04 cm) hb 07:35 Pain Scale: Adult hb MDM: 07:30 Patient medically screened. [facility] 08:32 Data reviewed: vital signs, nurses notes, lab test result(s), Flu: negative. [facility] Consideration of Admission/Observation Escalation of care including admission/observation considered. I considered the following discharge prescriptions or medication management in the emergency department Medications were administered in the Emergency Department. See MAR. Independent interpretation of the following test(s) in the Emergency Department X-Ray: My interpretation is cxr neg. Test considered but Not performed: Labs: no cbc , no comp. Care significantly affected by the following chronic conditions: anxiety, migraines. 03/13 07:37 Order name: SARS RAPID; Complete Time: 08:58 [facility] 03/13 07:37 Order name: Flu; Complete Time: 08:58 [facility] 03/13 07:37 Order name: Strep [facility] 03/13 08:35 Order name: Throat Culture [facility] 03/13 07:37 Order name: Chest Pa And Lat (2 Views) XRAY; Complete Time: 08:58 [facility] Administered Medications: 07:53 Drug: Ibuprofen PO 600 mg PO once Route: PO; hb 09:19 Follow up: Response: No adverse reaction [facility] 09:20 Not Given (Patient Refused): [id number] mg PO once jl7 Disposition Summary: 03/13/24 08:58 Discharge Ordered Notes: Location: Home [facility] Problem: new [facility] Symptoms: have improved dana Condition: Stable dana Diagnosis - Fever, unspecified dana - Acute upper respiratory infection, unspecified dana Followup: dana - With: Private Physician - When: 2 - 3 days - Reason: Recheck today's complaints, Continuance of care, Re-evaluation by your physician Discharge Instructions: - Discharge Summary Sheet dana - Fever, Adult dana - Upper Respiratory Infection, Adult dana - Cool Mist Vaporizer dana - Upper Respiratory Infection, Adult, [id number] dana - Cough, Adult [facility] Forms: - Medication Reconciliation Form dana - Antibiotic Education dana - Prescription Opioid Use dana - Patient Portal Instructions dana - Leadership Thank You Letter dana - Work release form jl7 Prescriptions: - benzonatate 200 mg Oral capsule - take 1 capsule ORAL route 3 times per day as needed; 30 capsule; Refills: 0, dana Product Selection Permitted - Zithromax 500 mg Oral tablet - take 1 tablet ORAL route once daily for 5 days; 5 tablet; Refills: 0, Product [facility] Selection Permitted Signatures: Dispatcher [employer] EDEd Gutiérrez MD MD cha Baxter, Heather, RN RN Alexandrea Johnson RN jl7
[2024-03-13 09:27] VITALS: BP 118/60; TEMP 97.7; O2SAT 100
== END 2024-03-13 09:22 | disposition home or self-care (01) ==
LOC: ER 07:12
DX: J06.9 Acute upper respiratory infection, unspecified (principal); Z11.52 Encounter for screening for COVID-19
CPT/HCPCS: 36415; 71046; 87070; 87081; 87804; 87811

== ENCOUNTER 2024-09-16 10:53 | Emergency (ER) | payer SELFPAY ==
--- NOTE | 2024-09-16 11:10 | EDPHYS ---
Physician Documentation [facility] Name: Denise Vanessa Jr Age: 24 yrs Sex: Male : 2000 Arrival Date: 09/16/2024 Time: 10:53 Bed 12 Private MD: ED Physician Csear Alexander HPI: 09/16 14:33 This 24 yrs old Male presents to ER via Ambulatory with complaints of Sore Throat. rt 14:33 Patient presents to the ED with sore throat starting this morning. States that is all rt been scratching yesterday but did not think much of it. Reports pain with swallowing but not difficulty swallowing. To the patient denies cough, respiratory symptoms, acute complaints, symptoms are mild in severity, no other aggravating alleviating factors.. Historical: - Allergies: 11:00 No Known Allergies; ph - PMHx: 11:00 Anxiety; Migraines; ph - PSHx: 11:00 tubes in Ears; ph - Immunization history:: Adult Immunizations unknown. - Infectious Disease History:: Denies. - Social history:: Smoking status: Reported history of juuling and/or vaping. - Family history:: not pertinent. ROS: 14:33 Constitutional: Negative for fever, chills, and weight loss, Cardiovascular: Negative rt for chest pain, palpitations, and edema, Respiratory: Negative for shortness of breath, cough, wheezing, and pleuritic chest pain, Abdomen/GI: Negative for abdominal pain, nausea, vomiting, diarrhea, and constipation, Skin: Negative for injury, rash, and discoloration, Neuro: Negative for headache, weakness, numbness, tingling, and seizure, 14:33 ENT: Positive for sore throat, Negative for rhinorrhea, Exam: 14:33 Constitutional: This is a well developed, well nourished patient who is awake, alert, rt and in no acute distress. Head/Face: Normocephalic, atraumatic. Chest/axilla: Normal chest wall appearance and motion. Nontender with no deformity. No lesions are appreciated. Cardiovascular: Regular rate and rhythm with a normal S1 and S2. No gallops, murmurs, or rubs. Normal PMI, no JVD. No pulse deficits. Respiratory: Lungs have equal breath sounds bilaterally, clear to auscultation and percussion. No rales, rhonchi or wheezes noted. No increased work of breathing, no retractions or nasal flaring. Abdomen/GI: Soft, non-tender, with normal bowel sounds. No distension or tympany. No guarding or rebound. No evidence of tenderness throughout. Skin: Warm, dry with normal turgor. Normal color with no rashes, no lesions, and no evidence of cellulitis. MS/ Extremity: Pulses equal, no cyanosis. Neurovascular intact. Full, normal range of motion. 14:33 ENT: Posterior pharyngeal erythema without exudates, 2+ tonsils, symmetric, uvula is midline. Vital Signs: 10:59 Pulse 64; Resp 18; Temp 97.9; Pulse Ox 100% on R/A; Weight 72.57 kg; Height 6 ft. 4 in. ph ; 10:59 Body Mass Index 19.48 (72.57 kg, 193.04 cm) ph MDM: 11:04 Medical Screening Exam initiated rt 14:33 Differential diagnosis: Strep, viral syndrome. Data reviewed: vital signs, nurses rt notes. Test considered but Not performed: Other Details After discussion with the patient, will treat empirically for strep without testing, low suspicion for RPA, GRAIN PACKER, Parag's angina, CT not indicated. Counseling: I had a detailed discussion with the patient and/or guardian regarding the historical points, exam findings, and any diagnostic results supporting the discharge/admit diagnosis, the need for outpatient follow up, to return to the emergency department if symptoms worsen or persist or if there are any questions or concerns that arise at home. Response to treatment: the patient's symptoms have mildly improved after treatment. Administered Medications: No medications were administered Disposition Summary: 09/16/24 11:10 Discharge Ordered Notes: Location: Home rt Problem: new rt Symptoms: have improved rt Condition: Stable rt Diagnosis - Streptococcal pharyngitis rt Followup: rt - With: Private Physician - When: 2 - 3 days - Reason: Discharge Instructions: - Discharge Summary Sheet rt - Strep Throat, Adult rt Forms: - Work release form ph - Medication Reconciliation Form rt - Antibiotic Education rt - Prescription Opioid Use rt - Patient Portal Instructions rt - Leadership Thank You Letter rt Prescriptions: - Augmentin 875-125 mg Oral Tablet - take 1 tablet ORAL route every 12 hours for 10 days; 20 tablet; Refills: 0, rt Product Selection Permitted Signatures: Dispatcher [employer] Tori Bruno RN RN Cesar Wynn MD MD rt
--- NOTE | 2024-09-16 11:10 | ER ---
Nurse's Notes [facility] Name: Denise Vanessa Jr Age: 24 yrs Sex: Male : 2000 Arrival Date: 09/16/2024 Time: 10:53 Bed 12 Private MD: Diagnosis: Streptococcal pharyngitis Presentation: 09/16 10:59 Chief complaint: Patient states: Sore throat, difficulty swallowing, headache and ph fever, started this morning. Coronavirus screen: Vaccine status: Patient reports being unvaccinated. Ebola Screen: No symptoms or risks identified at this time. Initial Sepsis Screen: Does the patient meet any 2 criteria? No. Patient's initial sepsis screen is negative. Does the patient have a suspected source of infection? No. Patient's initial sepsis screen is negative. Risk Assessment: Do you want to hurt yourself or someone else?. Onset of symptoms was September 16, 2024. 10:59 Method Of Arrival: Ambulatory ph 10:59 Acuity: POONAM 4 ph Triage Assessment: 11:00 General: Appears in no apparent distress. comfortable, Behavior is calm, cooperative. ph Pain: Complains of pain in throat. EENT: EENT: Reports pain when swallowing. Neuro: Level of Consciousness is awake, alert, obeys commands, Oriented to person, place, time, situation. Cardiovascular: Capillary refill < 3 seconds in bilateral fingers Patient's skin is warm and dry. Respiratory: Airway is patent Respiratory effort is even, unlabored, Respiratory pattern is regular, symmetrical. Historical: - Allergies: 11:00 No Known Allergies; ph - PMHx: 11:00 Anxiety; Migraines; ph - PSHx: 11:00 tubes in Ears; ph - Immunization history:: Adult Immunizations unknown. - Infectious Disease History:: Denies. - Social history:: Smoking status: Reported history of juuling and/or vaping. - Family history:: not pertinent. Screenin:05 [facility] Fall Risk Assessment (Adult) History of falling in the last 3 months, ph including since admission No falls in past 3 months (0 pts) Confusion or Disorientation No (0 pts) Intoxicated or Sedated No (0 pts) Impaired Gait No (0 pts) Mobility Assist Device Used No (0 pt) Altered Elimination No (0 pt) Score/Fall Risk Level 0 - 2 = Low Risk Oriented to surroundings, Maintained a safe environment, Hourly rounding (assess needs \T\ fall precautionary measures) done. Abuse screen: Denies threats or abuse. Denies injuries from another. Nutritional screening: No deficits noted. Tuberculosis screening: No symptoms or risk factors identified. Vital Signs: 10:59 Pulse 64; Resp 18; Temp 97.9; Pulse Ox 100% on R/A; Weight 72.57 kg; Height 6 ft. 4 in. ph ; 10:59 Body Mass Index 19.48 (72.57 kg, 193.04 cm) ph ED Course: 10:56 Patient arrived in ED. mr 10:56 Cesar Alexander MD is Attending Physician. rt 11:00 Triage completed. ph 11:00 Arm band placed on Patient placed in waiting room, Patient notified of wait time. ph 11:00 Patient has correct armband on for positive identification. Bed in low position. Call ph light in reach. Side rails up X 1. Door closed. Noise minimized. Warm blanket given. 11:03 Tori Hill RN is Primary Nurse. ph 11:27 No provider procedures requiring assistance completed. Patient did not have IV access ph during this emergency room visit. Administered Medications: No medications were administered Medication: 11:05 VIS not applicable for this client. ph Outcome: 11:10 Discharge ordered by . rt 11:27 Patient left the ED. ll1 11:27 Discharged to home ambulatory, ph 11:27 Condition: good 11:27 Discharge instructions given to patient, Instructed on discharge instructions, follow up and referral plans. medication usage, Demonstrated understanding of instructions, follow-up care, medications, Prescriptions given X 1, Signatures: Cecilia Kaur, Reg Reg mr Tori Hill, RN RN ph Rashi Zhou RN RN ll1 Cesar Alexander MD MD rt
[2024-09-16 11:36] VITALS: TEMP 97.9; O2SAT 100
== END 2024-09-16 11:27 | disposition home or self-care (01) ==
LOC: ER 10:53
DX: J02.0 Streptococcal pharyngitis (principal)
CPT/HCPCS: 99283

== ENCOUNTER 2024-09-28 10:43 | Emergency (ER) | payer SELFPAY ==
[2024-09-28] MEDS ORDERED: dexAMETHasone 10 MG/ML VIAL ONE (10:59)
[2024-09-28] MEDS ORDERED: LIDOCAINE VISCOUS 2% 10ML ORAL SOLN ONE (10:59)
[2024-09-28 11:22] LABS: Influenza A Ag Negative; Influenza B Ag Negative; SARS-CoV-2 Antigen Rapid Res Negative (Negative)
--- NOTE | 2024-09-28 11:24 | EDPHYS ---
Physician Documentation [facility] Name: Denise Vanessa Jr Age: 24 yrs Sex: Male : 2000 Arrival Date: 09/28/2024 Time: 10:43 Bed 12 Private MD: ED Physician Twan Pascual HPI: 09/28 10:52 This 24 yrs old Male presents to ER via Ambulatory with complaints of Sore ec2 Throat, Breathing Difficulty. 10:52 Patient arrives today for evaluation for sore throat. Onset of 1 week. Patient reports ec2 some odynophagia, reports that he feels like "glass shards ". Patient reports occasional cough. No vomiting, no diarrhea.. Historical: - Allergies: 10:50 No Known Allergies; aa5 - PMHx: 10:50 Anxiety; Migraines; aa5 - PSHx: 10:50 tubes in Ears; aa5 - Immunization history:: Adult Immunizations unknown. - Infectious Disease History:: Denies. - Social history:: Smoking status: Patient denies any tobacco usage or history of. ROS: 10:53 Constitutional: as per hpi ec2 Exam: 10:53 Constitutional: GEN: NAD Head: atraumatic Eyes: EOMI Ears: External ears are normal. ec2 Mouth: Posterior pharyngeal erythema CV: regular rate LUNGS: no respiratory distress ABD: non-distended SKIN: no evidence of rashes MSK: no evidence of trauma Vital Signs: 10:50 BP 136 / 88; Pulse 79; Resp 18 S; Temp 98.4(O); Pulse Ox 100% on R/A; Height 6 ft. 4 aa5 in. (R); 10:56 Weight 68.49 kg (M); aa5 MDM: 10:48 Medical Screening Exam initiated ec2 10:53 Data reviewed: vital signs, nurses notes. ED course: Patient arrives today for sore ec2 throat. Emanation yields HEENT findings as above. Will obtain viral swab and strep swab. Suspect pharyngitis. Question of bacterial versus viral.. 11:22 ED course: Viral swab negative. On reassessment patient remains well-appearing no acute ec2 distress. Will discharge home have patient follow-up PCP. Patient's patient on steroids and check patient [id number].. 09/28 10:48 Order name: COVID-19 Ag + Flu A+B Ag; Complete Time: 11:22 ec2 09/28 10:48 Order name: Group A Streptococcus Rapid; Complete Time: 11:16 ec2 09/28 11:15 Order name: Throat Culture EDMS Administered Medications: 11:05 Drug: Dexamethasone IM 10 mg IM once Route: IM; Site: left gluteus; aa5 11:35 Follow up: Response: No adverse reaction; Pain is decreased iw 11:05 Drug: Viscous Lidocaine Mucous Membrane Liquid (4 %) 10 ml Mucous Membrane once Route: aa5 Mucous Membrane; Disposition Summary: 09/28/24 11:23 Discharge Ordered Notes: Location: Home ec2 Condition: Stable ec2 Diagnosis - Acute pharyngitis, unspecified ec2 Followup: ec2 - With: Private Physician - When: - Reason: Re-evaluation by your physician Discharge Instructions: - Discharge Summary Sheet ec2 - Pharyngitis, [id number] ec2 Forms: - Work release form ec2 - Medication Reconciliation Form ec2 - Antibiotic Education ec2 - Prescription Opioid Use ec2 - Patient Portal Instructions ec2 - Leadership Thank You Letter ec2 Prescriptions: - Prednisone 20 mg Oral Tablet - take 2 tablets ORAL route once daily for 5 days; 10 tablet; Refills: 0, Product ec2 Selection Permitted Signatures: Dispatcher [employer] EDTrice Nuñez RN RN aa5 Twan Pascual MD MD ec2 Shannan Dumont RN iw
--- NOTE | 2024-09-28 11:24 | ER ---
Nurse's Notes [facility] Name: Denise Vanessa Jr Age: 24 yrs Sex: Male : 2000 Arrival Date: 09/28/2024 Time: 10:43 Bed 12 Private MD: Diagnosis: Acute pharyngitis, unspecified Presentation: 09/28 10:50 Chief complaint: Patient states: sore throat since last week, slight cough. Coronavirus aa5 screen: sore throat. Ebola Screen: Patient denies travel to an Ebola-affected area in the 21 days before illness onset. Initial Sepsis Screen: Does the patient meet any 2 criteria? No. Patient's initial sepsis screen is negative. Does the patient have a suspected source of infection? No. Patient's initial sepsis screen is negative. Risk Assessment: Do you want to hurt yourself or someone else? Patient reports no desire to harm self or others. Onset of symptoms was September 2024. 10:50 Acuity: POONAM 4 aa5 10:50 Method Of Arrival: Ambulatory aa5 Triage Assessment: 10:50 General: Appears uncomfortable, Behavior is calm, cooperative. Pain: Complains of pain aa5 in throat Pain currently is 10 out of 10 on a pain scale. Quality of pain is described as "like needles" Pain began 1 week ago Is continuous. EENT: Throat is reddened with gag reflex present. Neuro: Level of Consciousness is awake, alert, obeys commands, Oriented to person, place, time, situation. Cardiovascular: No deficits noted. Respiratory: Airway is patent Respiratory effort is even, unlabored, Respiratory pattern is regular, symmetrical. GI: No signs and/or symptoms were reported involving the gastrointestinal system. : No signs and/or symptoms were reported regarding the genitourinary system. Derm: Skin is pink, warm \\T\\ dry. Musculoskeletal: Range of motion: intact in all extremities. Historical: - Allergies: 10:50 No Known Allergies; aa5 - PMHx: 10:50 Anxiety; Migraines; aa5 - PSHx: 10:50 tubes in Ears; aa5 - Immunization history:: Adult Immunizations unknown. - Infectious Disease History:: Denies. - Social history:: Smoking status: Patient denies any tobacco usage or history of. Screenin:48 [facility] ED Fall Risk Assessment (Adult) History of falling in the last 3 months, iw including since admission No falls in past 3 months (0 pts) Confusion or Disorientation No (0 pts) Intoxicated or Sedated No (0 pts) Impaired Gait No (0 pts) Mobility Assist Device Used No (0 pt) Altered Elimination No (0 pt) Score/Fall Risk Level 0 - 2 = Low Risk Oriented to surroundings, Maintained a safe environment. Abuse screen: Denies threats or abuse. Denies injuries from another. Nutritional screening: No deficits noted. Tuberculosis screening: No symptoms or risk factors identified. Assessment: 11:47 Reassessment: Patient appears in no apparent distress at this time. Patient and/or iw family updated on plan of care and expected duration. Pain level reassessed. Patient is alert, oriented x 3, equal unlabored respirations, skin warm/dry/pink. Vital Signs: 10:50 BP 136 / 88; Pulse 79; Resp 18 S; Temp 98.4(O); Pulse Ox 100% on R/A; Height 6 ft. 4 aa5 in. (R); 10:56 Weight 68.49 kg (M); aa5 ED Course: 10:47 Patient arrived in ED. al6 10:48 Twan Pascual MD is Attending Physician. ec2 10:50 Triage completed. aa5 10:50 Arm band placed on. aa5 10:50 Patient has correct armband on for positive identification. aa5 10:56 Trice Rodriguez, RN is Primary Nurse. aa5 11:47 No provider procedures requiring assistance completed. Patient did not have IV access iw during this emergency room visit. Administered Medications: 11:05 Drug: Dexamethasone IM 10 mg IM once Route: IM; Site: left gluteus; aa5 11:35 Follow up: Response: No adverse reaction; Pain is decreased iw 11:05 Drug: Viscous Lidocaine Mucous Membrane Liquid (4 %) 10 ml Mucous Membrane once Route: aa5 Mucous Membrane; Medication: 11:48 VIS not applicable for this client. iw Outcome: 11:23 Discharge ordered by . ec2 11:48 Discharged to home ambulatory, iw 11:48 Condition: good 11:48 Discharge instructions given to patient, Instructed on discharge instructions, follow up and referral plans. Demonstrated understanding of instructions, follow-up care, medications, Prescriptions given X 1, 11:48 Patient left the ED. iw Signatures: Shannan Dumont RN RN iw Trice Rodriguez RN RN aa5 Twan Pascual MD MD ec2 Kassi Paniagua al6
[2024-09-28 11:53] VITALS: BP 136/88; TEMP 98.4; O2SAT 100
== END 2024-09-28 11:48 | disposition home or self-care (01) ==
LOC: ER 10:43
DX: J02.9 Acute pharyngitis, unspecified (principal); Z11.52 Encounter for screening for COVID-19
CPT/HCPCS: 36415; 87070; 87428; 96372; 99284; J1100

== ENCOUNTER 2025-05-06 16:04 | Emergency (ER) | payer SELFPAY ==
[2025-05-06] MEDS ORDERED: KETOROLAC 30 MG/ML INJ ONE (16:59)
[2025-05-06 17:00] LABS: Absolute Lymphocytes (CBC) 1.6 K/uL (0.7-4.9); Hematocrit 40.6 % (39.6-49.0); Hemoglobin 13.7 g/dL (13.6-17.9); MCH 29.5 pg (27.0-35.0); MCHC 33.8 g/dL (32.0-36.0); MCV 87.2 fL (80-100); MPV 8.0 fL (7.6-11.3); Nucleated RBC Absolute Count 0.0 (0-0); Nucleated Red Blood Cells % 0.1 % (0-0); RBC Red Blood Cell Count 4.65 M/uL (4.33-5.43); White Blood Count 9.50 thou/uL (4.3-10.9)
[2025-05-06 17:18] LABS: Anion Gap 6.6 mEq/L (5.0-15.0); BUN Blood Urea Nitrogen 11.0 mg/dL (7-18); Glucose Level 88.0 mg/dL (74-106); Potassium 3.6 mEq/L (3.5-5.1); Troponin High Sensitivity 3.1 pg/mL (<58.9)
--- NOTE | 2025-05-06 17:50 | RAD REPORT ---
EXAMINATION: ONE VIEW CHEST XR CLINICAL INDICATION: CHEST PAIN TECHNIQUE: Frontal chest projection is submitted. Examination is limited by patient positioning and t echnique. COMPARISON: No prior exam. FINDINGS: The lungs are well inflated and clear. The heart is normal in size. No displaced fractures identified . IMPRESSION: No acute intrathoracic abnormalities.
--- NOTE | 2025-05-06 18:04 | EDPHYS ---
Physician Documentation [facility] Name: Denise Vanessa Jr Age: 25 yrs Sex: Male : 2000 Arrival Date: 05/06/2025 Time: 16:04 Bed 16 Private MD: ED Physician Loy Arceo HPI: 05/06 17:03 This 25 yrs old Male presents to ER via Ambulatory with complaints of Chest Pain. sp3 17:03 25-year-old male with history of anxiety and migraines presents with right lower chest sp3 pain sharp in nature for approximately 1 day. Patient denies any physical exertion, activity, straining, recent travel, prolonged immobilization, cough, congestion, history of PE or dissection in the family, biliary pathology, vomiting, diarrhea, back pain, shortness of breath, or any other signs or symptoms on ROS at this time. Pain comes and goes it is very sharp and in a very specific spot. ROS otherwise negative.. Historical: - Allergies: 16:19 No Known Allergies; ap3 - Home Meds: 16:19 None [Active]; ap3 - PMHx: 16:19 Anxiety; Migraines; ap3 - PSHx: 16:19 tubes in Ears; ap3 - Immunization history:: Adult Immunizations up to date. - Infectious Disease History:: Denies. - Social history:: Smoking status: Patient denies any tobacco usage or history of. Patient uses street drugs, marijuana. ROS: 17:04 Constitutional: Negative for fever, chills, and weight loss, Eyes: Negative for injury, sp3 pain, redness, and discharge, ENT: Negative for injury, pain, and discharge, Neck: Negative for injury, pain, and swelling, Respiratory: Negative for shortness of breath, cough, wheezing, and pleuritic chest pain, Abdomen/GI: Negative for abdominal pain, nausea, vomiting, diarrhea, and constipation, Back: Negative for injury and pain, Skin: Negative for injury, rash, and discoloration, Neuro: Negative for headache, weakness, numbness, tingling, and seizure, Psych: Negative for depression, anxiety, suicide ideation, homicidal ideation, and hallucinations, Allergy/Immunology: Negative for hives, rash, and allergies, Endocrine: Negative for neck swelling, polydipsia, polyuria, polyphagia, and marked weight changes, Hematologic/Lymphatic: Negative for swollen nodes, abnormal bleeding, and unusual bruising, 17:04 All other systems are negative, Exam: 17:04 Constitutional: This is a well developed, well nourished patient who is awake, alert, sp3 and in no acute distress. Head/Face: Normocephalic, atraumatic. Eyes: Pupils equal round and reactive to light, extra-ocular motions intact. Lids and lashes normal. Conjunctiva and sclera are non-icteric and not injected. Cornea within normal limits. Periorbital areas with no swelling, redness, or edema. Neck: Trachea midline, no thyromegaly or masses palpated, and no cervical lymphadenopathy. Supple, full range of motion without nuchal rigidity, or vertebral point tenderness. No Meningismus. Chest/axilla: Normal chest wall appearance and motion. Nontender with no deformity. No lesions are appreciated. Cardiovascular: Regular rate and rhythm with a normal S1 and S2. No gallops, murmurs, or rubs. Normal PMI, no JVD. No pulse deficits. Respiratory: Lungs have equal breath sounds bilaterally, clear to auscultation and percussion. No rales, rhonchi or wheezes noted. No increased work of breathing, no retractions or nasal flaring. Abdomen/GI: Soft, non-tender, with normal bowel sounds. No distension or tympany. No guarding or rebound. No evidence of tenderness throughout. Back: No spinal tenderness. No costovertebral tenderness. Full range of motion. Skin: Warm, dry with normal turgor. Normal color with no rashes, no lesions, and no evidence of cellulitis. MS/ Extremity: Pulses equal, no cyanosis. Neurovascular intact. Full, normal range of motion. Neuro: Awake and alert, GCS 15, oriented to person, place, time, and situation. Cranial nerves II-XII grossly intact. Motor strength 5/5 in all extremities. Sensory grossly intact. Cerebellar exam normal. Normal gait. Psych: Awake, alert, with orientation to person, place and time. Behavior, mood, and affect are within normal limits. 17:04 ECG was reviewed by the Attending Physician. EKG demonstrates normal sinus rhythm at 70 bpm with normal intervals, normal QRS, normal axis and normal ST/T-segment's without evidence of acute ischemia. Normal EKG. Vital Signs: 16:17 BP 110 / 69; Pulse 77; Resp 17; Temp 98.1; Pulse Ox 99% ; Weight 68.04 kg; Height 6 ft. ap3 4 in. ; Pain 8/10; 16:26 BP 116 / 70; Pulse 68; Pulse Ox 98% ; rg5 17:15 BP 109 / 65; Pulse 61; Resp 18; Pulse Ox 99% ; rg5 18:30 BP 113 / 66; Pulse 66; Resp 18; Pulse Ox 100% ; rg5 16:17 Body Mass Index 18.26 (68.04 kg, 193.04 cm) ap3 16:17 Pain Scale: Adult ap3 MDM: 16:18 Medical Screening Exam initiated sp3 17:05 Data reviewed: vital signs, nurses notes, lab test result(s), EKG, radiologic studies. sp3 ED course: 25-year-old male with PMH above now with right-sided chest pain. Differential diagnosis likely musculoskeletal versus pleurisy. Clinically not highly suspicious of acute coronary syndrome, PE, TAD, pneumothorax, pneumonia, or any other critical process. Workup will include EKG which is normal, chest x-ray and routine labs including D-dimer and troponin. If workup negative we will safely discharge patient home. Ketorolac 30 mg IV for pain control.. 18:03 ED course: Full workup negative. Pain mildly improved. Will discharge patient home on sp3 diclofenac and PCP follow-up.. 05/06 16:50 Order name: Basic Metabolic Panel; Complete Time: 18:03 sp3 05/06 16:50 Order name: CBC with Diff; Complete Time: 18:03 sp3 05/06 16:50 Order name: D-Dimer; Complete Time: 18:03 sp3 05/06 16:50 Order name: Troponin HS; Complete Time: 18:03 sp3 05/06 16:31 Order name: CXR XRAY; Complete Time: 18:03 sp3 05/06 16:31 Order name: EKG; Complete Time: 16:31 sp3 05/06 16:31 Order name: EKG - Nurse/Tech; Complete Time: 16:31 sp3 05/06 16:50 Order name: Cardiac monitoring; Complete Time: 16:51 sp3 05/06 16:50 Order name: IV Saline Lock; Complete Time: 16:50 sp3 10/30 16:50 Order name: Labs collected and sent; Complete Time: 16:50 sp3 05/06 16:50 Order name: O2 Sat Monitoring; Complete Time: 16:51 sp3 Administered Medications: 17:09 Drug: Ketorolac IVP 30 mg IVP once Route: IVP; Site: left antecubital; rg5 17:40 Follow up: Response: No adverse reaction; Pain is decreased rg5 Disposition Summary: 05/06/25 18:04 Discharge Ordered Notes: Location: Home sp3 Condition: Stable sp3 Diagnosis - Chest pain, chest wall pain sp3 Followup: sp3 - With: Private Physician - When: Upon discharge from the Emergency Department - Reason: Continuance of care Discharge Instructions: - Discharge Summary Sheet sp3 - Chest Wall Pain sp3 Forms: - Medication Reconciliation Form sp3 - Antibiotic Education sp3 - Prescription Opioid Use sp3 - Patient Portal Instructions sp3 - Leadership Thank You Letter sp3 - Work release form rg5 Prescriptions: - Diclofenac Sodium 75 mg Oral Tablet Sustained Release - take 1 tablet ORAL route 2 times per day; 30 tablet; Refills: 0, Product sp3 Selection Permitted Signatures: Dispatcher [employer] Deanna Cohn RN RN ap3 Loy Arceo MD MD sp3 Sergey Noel RN RN rg5
--- NOTE | 2025-05-06 18:04 | ER ---
Nurse's Notes [facility] Name: Denise Vanessa Jr Age: 25 yrs Sex: Male : 2000 Arrival Date: 05/06/2025 Time: 16:04 Bed 16 Private MD: Diagnosis: Chest pain, chest wall pain Presentation: 05/06 16:17 Chief complaint: Patient states: he had what felt like "needle pain" in his chest this ap3 morning but it has gotten worse throughout the day. patient currently rates his pain as an 8/10 on the pain scale and states that the pain is worse when the takes a deep breath. Coronavirus screen: At this time, the client does not indicate any symptoms associated with coronavirus-19. Ebola Screen: No symptoms or risks identified at this time. Initial Sepsis Screen: Does the patient meet any 2 criteria? No. Patient's initial sepsis screen is negative. Does the patient have a suspected source of infection? No. Patient's initial sepsis screen is negative. Risk Assessment: Do you want to hurt yourself or someone else? Patient reports no desire to harm self or others. Onset of symptoms was May 06, 2025. 16:17 Method Of Arrival: Ambulatory ap3 16:17 Acuity: POONAM 2 ap3 Triage Assessment: 16:19 General: Appears in no apparent distress. Behavior is calm, cooperative, appropriate ap3 for age. Pain: Complains of pain in chest Aggravated by taking a deep breath. Neuro: Level of Consciousness is awake, alert, obeys commands, Oriented to person, place, time, situation, Appropriate for age Gait is steady, Speech is normal. Cardiovascular: Reports chest pain, Patient's skin is warm and dry. Respiratory: Reports pain with respiration Airway is patent Respiratory effort is even, unlabored, Respiratory pattern is regular, symmetrical. Historical: - Allergies: 16:19 No Known Allergies; ap3 - Home Meds: 16:19 None [Active]; ap3 - PMHx: 16:19 Anxiety; Migraines; ap3 - PSHx: 16:19 tubes in Ears; ap3 - Immunization history:: Adult Immunizations up to date. - Infectious Disease History:: Denies. - Social history:: Smoking status: Patient denies any tobacco usage or history of. Patient uses street drugs, marijuana. Screenin:20 [facility] ED Fall Risk Assessment (Adult) History of falling in the last 3 months, ap3 including since admission No falls in past 3 months (0 pts) Confusion or Disorientation No (0 pts) Intoxicated or Sedated No (0 pts) Impaired Gait No (0 pts) Mobility Assist Device Used No (0 pt) Altered Elimination No (0 pt) Score/Fall Risk Level 0 - 2 = Low Risk Oriented to surroundings, Maintained a safe environment, Educated pt \\T\\ family on fall prevention, incl call for assistance when getting out of bed, Assessed \\T\\ reinforced patient's understanding of fall precautions, Hourly rounding (assess needs \\T\\ fall precautionary measures) done, Used ambulatory aids as needed (educated on \\T\\ assisted with). Abuse screen: Denies threats or abuse. Nutritional screening: No deficits noted. Tuberculosis screening: No symptoms or risk factors identified. Assessment: 16:20 Pain: Pain does not radiate. Pain began this morning. ap3 16:26 Reassessment:. General: Appears in no apparent distress. Behavior is calm, cooperative, rg5 appropriate for age. Pain: Complains of pain in chest Quality of pain is described as aching. Neuro: Level of Consciousness is awake, alert, obeys commands, Oriented to person, place, time, situation. Cardiovascular: Reports chest pain, Patient's skin is warm and dry. Rhythm is sinus rhythm. Respiratory: Airway is patent Trachea midline Respiratory effort is even, unlabored. GI: Abdomen is flat, non-distended. : No signs and/or symptoms were reported regarding the genitourinary system. : No signs and/or symptoms were reported regarding the genitourinary system. EENT: No signs and/or symptoms were reported regarding the EENT system. Derm: Skin is intact, Skin is dry, Skin is normal. Musculoskeletal: Circulation, motion, and sensation intact. Range of motion: intact in all extremities. 17:15 Reassessment: Patient and/or family updated on plan of care and expected duration. Pain rg5 level reassessed. Patient is alert, oriented x 3, equal unlabored respirations, skin warm/dry/pink. 18:35 Reassessment: Patient and/or family updated on plan of care and expected duration. Pain rg5 level reassessed. Patient is alert, oriented x 3, equal unlabored respirations, skin warm/dry/pink. Patient states symptoms have improved. Vital Signs: 16:17 BP 110 / 69; Pulse 77; Resp 17; Temp 98.1; Pulse Ox 99% ; Weight 68.04 kg; Height 6 ft. ap3 4 in. ; Pain 8/10; 16:26 BP 116 / 70; Pulse 68; Pulse Ox 98% ; rg5 17:15 BP 109 / 65; Pulse 61; Resp 18; Pulse Ox 99% ; rg5 18:30 BP 113 / 66; Pulse 66; Resp 18; Pulse Ox 100% ; rg5 16:17 Body Mass Index 18.26 (68.04 kg, 193.04 cm) ap3 16:17 Pain Scale: Adult ap3 ED Course: 16:10 Patient arrived in ED. al6 16:12 Loy Arceo MD is Attending Physician. sp3 16:12 Sergey Noel, HINA is Primary Nurse. rg5 16:19 Triage completed. ap3 16:20 Arm band placed on right wrist. ap3 16:20 Patient maintains SpO2 saturation greater than 95% on room air. ap3 16:26 Patient has correct armband on for positive identification. Bed in low position. Call rg5 light in reach. Side rails up X 1. Client placed on continuous cardiac and pulse oximetry monitoring. NIBP monitoring applied. bus aide on. Pulse ox on. NIBP on. Door closed. Noise minimized. 16:26 No provider procedures requiring assistance completed. Inserted saline lock: in left rg5 antecubital area, using aseptic technique. Blood collected. Flushed with 10 mL NS. 17:31 CXR XRAY In Process Unspecified. EDMS 18:47 IV discontinued, bleeding controlled, No redness/swelling at site. Pressure dressing rg5 applied. Administered Medications: 17:09 Drug: Ketorolac IVP 30 mg IVP once Route: IVP; Site: left antecubital; rg5 17:40 Follow up: Response: No adverse reaction; Pain is decreased rg5 Medication: 16:26 VIS not applicable for this client. rg5 Outcome: 18:04 Discharge ordered by . sp3 18:47 Discharged to home ambulatory, rg5 18:47 Condition: stable 18:47 Discharge instructions given to patient, Instructed on discharge instructions, Demonstrated understanding of instructions, Prescriptions given X 1, 18:47 Patient left the ED. rg5 Signatures: Dispatcher [employer] Deanna Cohn RN RN ap3 Loy Arceo MD MD sp3 Sergey Noel RN RN rg5 Kassi Paniagua6
[2025-05-06 19:02] VITALS: TEMP 98.1
[2025-05-06 19:12] VITALS: BP 113/66; O2SAT 100
== END 2025-05-06 18:47 | disposition home or self-care (01) ==
LOC: ER 16:04
DX: R07.89 Other chest pain (principal); F41.9 Anxiety disorder, unspecified
CPT/HCPCS: 36415; 71045; 80048; 84484; 85025; 85379; 93005; 96374; 99285; J1885